=== PATIENT | female | born 1950 | race Caucasian/White ===

== ENCOUNTER 2018-09-15 15:10 | Emergency (ER) | payer OTHER, MEDICARE ==
[2018-09-15] MEDS ORDERED: Sodium Chloride 0.9% 10 ML Syringe FLUSH PRN (15:17)
[2018-09-15] MEDS ORDERED: Sodium Chloride 0.9% 1,000 ML IV ONE (15:17)
[2018-09-15] MEDS ORDERED: Diltiazem 50 MG/10 ML SDV IVPUSH ONE (15:17)
[2018-09-15] MEDS: Diltiazem 50 MG/10 ML SDV IVPUSH ONE ×2 (15:35→18:02)
[2018-09-15] MEDS: Sodium Chloride 0.9% 1,000 ML IV ONE (15:35)
--- NOTE | 2018-09-15 15:46 | EDM.PDOC ---
ED HPI GENERAL MEDICAL PROBLEM - General Chief Complaint: Cardiovascular Problem Stated Complaint: SHORTNESS OF BREATH Time Seen by Provider: 09/15/18 15:14 Source of Information: Reports: Patient History Limitations: Reports: No Limitations - History of Present Illness INITIAL COMMENTS - FREE TEXT/NARRATIVE: Patient arrived at the clinic earlier today with complaints of SOB. Reports shortness of breath and chest pressure started 3 days ago. Upon EKG, she was found to be in a-fib with RVR. She was then sent to the ER from the [facility]. Initial blood pressure 105 systolic. She denies chest pain, headache, sweating, head, neck, arm, or jaw pain. Denies any urinary or bowel symptoms. She does deny any prior history of atrial fibrillation. No prior OR or CVA. History of smoking. No blood in urine or stool. No nausea or vomiting. No change in vision or speech. Onset: Today, Sudden Duration: Constant Associated Symptoms: Reports: Shortness of Breath - Related Data Allergies Allergy/AdvReac Type Severity Reaction Status Date / Time No Known Drug Allergies Allergy Other Verified 09/15/18 15:55 cats Allergy Unknown Sneezing Uncoded 03/02/18 12:34 Home Meds: Home Meds Albuterol Sulfate [Proair Hfa] 2 puff IH Q4H PRN 02/18/18 [History] Tiotropium [Spiriva Handihaler] 2 puff IH DAILY 02/18/18 [History] Aspirin 325 mg PO DAILY 03/02/18 [History] Calcium Carbonate 600 mg PO BIDMEALS 03/02/18 [History] Cholecalciferol (Vitamin D3) [Vitamin D3] 1,000 unit PO DAILY 03/02/18 [History] Fluticasone/Vilanterol [Breo Ellipta 200-25 MCG Inhalation Kit] 1 puff INH DAILY 03/02/18 [History] Multivitamin [Multivitamins] 1 each PO DAILY 03/02/18 [History] [place]-3 Fatty Acids [Maxepa] 500 mg PO DAILY 09/15/18 [History] Rosuvastatin [Crestor] 5 mg PO DAILY 09/15/18 [History] Varenicline Tartrate [Chantix] 0.5 mg PO BID 09/15/18 [History] Past Medical History - Past Health History Medical/Surgical History: Denies Medical/Surgical History Cardiovascular History: Reports: High Cholesterol Respiratory History: Reports: COPD Musculoskeletal History: Reports: Other (See Below) Other Musculoskeletal History: right hip septic arthritis Psychiatric History: Reports: Other (See Below) Other Psychiatric History: substance abuse - Past Surgical History HEENT Surgical History: Reports: Adenoidectomy, Tonsillectomy GI Surgical History: Reports: Other (See Below) Other GI Surgeries/Procedures: ventral hernia Female Surgical History: Reports: Section, Hysterectomy Musculoskeletal Surgical History: Reports: Other (See Below) Other Musculoskeletal Surgeries/Procedures:: hip surgery 2018 ED ROS GENERAL - Review of Systems Review Of Systems: See Below Constitutional: Reports: No Symptoms HEENT: Reports: No Symptoms Respiratory: Reports: Shortness of Breath Cardiovascular: Reports: No Symptoms Endocrine: Reports: No Symptoms GI/Abdominal: Reports: No Symptoms : Reports: No Symptoms Musculoskeletal: Reports: No Symptoms Skin: Reports: No Symptoms Neurological: Reports: No Symptoms Psychiatric: Reports: No Symptoms Hematologic/Lymphatic: Reports: No Symptoms Immunologic: Reports: No Symptoms ED EXAM, GENERAL - Physical Exam Exam: See Below Exam Limited By: No Limitations General Appearance: Alert, WD/WN, No Apparent Distress Eye Exam: Bilateral Eye: EOMI, Normal Inspection, PERRL Ears: Normal TMs Nose: Normal Inspection, Normal Mucosa, No Blood Throat/Mouth: Normal Inspection, Normal Lips, Normal Teeth, Normal Gums, Normal Oropharynx, Normal Voice, No Airway Compromise Head: Atraumatic, Normocephalic Neck: Normal Inspection, Supple, Non-Tender, Full Range of Motion Respiratory/Chest: No Respiratory Distress, Lungs Clear, No Accessory Muscle Use , Chest Non-Tender, Wheezing Cardiovascular: Normal Peripheral Pulses, No Edema, No Gallop, No JVD, No Murmur , No Rub, Irregularly Irregular GI/Abdominal: Normal Bowel Sounds, Soft, Non-Tender, No Organomegaly, No Distention, No Abnormal Bruit, No Mass Back Exam: Normal Inspection, Full Range of Motion, NT Extremities: Normal Inspection, Normal Range of Motion, Non-Tender, Normal Capillary Refill, No Pedal Edema Neurological: Alert, Oriented, CN II-XII Intact, Normal Cognition, Normal Gait, Normal Reflexes, No Motor/Sensory Deficits Psychiatric: Normal Affect, Normal Mood Skin Exam: Warm, Dry, Intact, Normal Color, No Rash Lymphatic: No Adenopathy Course - Vital Signs Last Recorded V/S: Last Vital Signs Temp 37.6 C 09/15/18 17:13 Pulse 113 H 09/15/18 17:13 Resp 15 09/15/18 17:13 BP 111/54 L 09/15/18 17:13 Pulse Ox 95 09/15/18 17:13 - Orders/Labs/Meds Labs: Laboratory Tests 09/15/18 09/15/18 09/15/18 Range/Units 15:30 15:30 15:30 WBC 10.0 (4.0-10.0) x10^3/uL RBC 4.86 (4.00-5.50) x10^6/uL Hgb 14.5 (12.0-16.0) g/dL Hct 45.4 (33.0-47.0) % MCV 93.4 H (78.0-93.0) fL MCH 29.8 (26.0-32.0) pg MCHC 31.9 L (32.0-36.0) g/dL RDW Coeff of Seferino 14.3 (10.0-15.0) % Plt Count 253 (130-400) x10^3/uL Neut % (Auto) 74.4 (50.0-80.0) % Lymph % (Auto) 15.8 L (25.0-50.0) % [place] % (Auto) 7.5 (2.0-11.0) % Eos % (Auto) 1.8 (0.0-4.0) % Baso % (Auto) 0.5 (0.2-1.2) % Sodium 143 D (136-145) mmol/L Potassium 4.6 (3.5-5.1) mmol/L Chloride 104 (98-107) mmol/L Carbon Dioxide 29 (21-32) mmol/L Anion Gap 14.6 (10-20) mmol/L BUN 11 (7-18) mg/dL Creatinine 0.7 (0.55-1.02) mg/dL Est Cr Clr Drug Dosing TNP Estimated GFR (MDRD) > 60 Glucose 97 (74-106) mg/dL Lactic Acid 1.6 (0.4-2.0) mmol/L Calcium 9.0 (8.5-10.1) mg/dL Corrected Calcium 9.96 (8.5-10.1) mg/dL Magnesium 1.7 L (1.8-2.4) mg/dL Total Bilirubin 0.5 (0.2-1.0) mg/dL AST 15 (15-37) U/L ALT 16 (14-59) U/L Alkaline Phosphatase 99 (46-116) U/L Creatine Kinase 45 (26-192) U/L Troponin I < 0.017 (<=0.056) ng/mL C-Reactive Protein 5.1 H (<=0.9) mg/dL NT-Pro-B Natriuret Pep 2566 H (<=125) pg/mL Total Protein 6.9 (6.4-8.2) g/dL Albumin 2.8 L (3.4-5.0) g/dL Globulin 4.1 Albumin/Globulin Ratio 0.68 TSH, Ultra Sensitive 1.737 (0.358-3.74) uIU/mL Meds: Medications Discontinued Medications Generic Name Dose Route Start Last Admin Trade Name Freq PRN Reason Stop Dose Admin Albuterol/Ipratropium 3 ml 09/15/18 16:05 09/15/18 16:11 Duoneb 3.0-0.5 Mg/3 Ml NEB 09/15/18 16:06 3 ml ONETIME ONE Administration Aspirin 324 mg 09/15/18 16:39 09/15/18 16:41 Aspirin PO 09/15/18 16:40 324 mg ONETIME ONE Administration Ceftriaxone Sodium 1 gm 09/15/18 15:56 09/15/18 16:00 Rocephin IVPUSH 09/15/18 15:57 1 gm STAT ONE Administration Diltiazem HCl 20 mg 09/15/18 15:17 Cardizem IVPUSH 09/15/18 15:18 ONETIME ONE Diltiazem HCl 10 mg 09/15/18 15:24 09/15/18 15:35 Cardizem IVPUSH 09/15/18 15:25 10 mg ONETIME ONE Administration Diltiazem HCl 10 mg 09/15/18 15:51 09/15/18 18:02 Cardizem IVPUSH 09/15/18 15:52 Not Given ONETIME ONE Enoxaparin Sodium 80 mg 09/15/18 16:54 09/15/18 17:06 Lovenox SUBCUT 09/15/18 16:55 80 mg ONETIME ONE Administration Sodium Chloride 1,000 mls @ 500 mls/hr 09/15/18 15:17 Normal Saline IV 09/15/18 17:16 ONETIME ONE Sodium Chloride 1,000 mls @ 999 mls/hr 09/15/18 15:25 09/15/18 15:35 Normal Saline IV 09/15/18 16:25 999 mls/hr ONETIME ONE Administration Amiodarone HCl/Dextrose 360 mg in 200 mls @ 33.333 mls/hr 09/15/18 17:00 17:14 Nexterone In Dextrose 360 Mg/200 Ml IV 33.333 mls/hr ASDIRECTED BHAVIN Administration Protocol Amiodarone HCl/Dextrose 360 mg 200 mls @ 500 mls/hr 09/15/18 16:54 09/15/18 17:04 / Premix IV 09/15/18 17:17 500 mls/hr .BOLUS ONE Administration Methylprednisolone Sodium Succinate 40 mg 09/15/18 16:06 09/15/18 16:10 Solu-Medrol IVPUSH 09/15/18 16:07 40 mg ONETIME ONE Administration Sodium Chloride 10 ml 09/15/18 15:17 Saline Flush FLUSH ASDIRECTED PRN Keep Vein Open - Radiology Interpretation Free Text/Narrative:: Chest x-ray shows COPD changes, but no pneumonia, edema, infiltrates, or atelectasis. Images pushed to [facility] through PACS - Re-Assessments/Exams Free Text/Narrative Re-Assessment/Exam: 09/15/18 16:00 Initial Cardizem 10 mg bolus given due to lower systolic pressures rather than full 20-25 mg. After this bolus, SBP did drop to 86 systolic. 0.9% Normal Saline bolus is infusing concurrently. Pressures did recover to 100-130 systolic but normalized in the 100-110 range systolic. 09/15/18 16:30 Additional Cardizem boluses held due to low systolic pressures. Will likely start Amiodarone, but will confer with accepting hospitalist at [facility]. Departure - Departure Time of Disposition: 18:10 Disposition: DC/Tfer to Acute Hospital 02 Reason for Transfer *Q: Other Condition: Fair Clinical Impression: Atrial fibrillation with RVR Referrals: [place],Kathya, MD [Primary Care Provider] - Forms: ED Department Discharge, Interfacility Transfer [facility] ED Communication - ED Communication Date/Time Date: 09/15/18 Time Called: 16:55 - Discussed Case With (1) Discussed Case With (1): Admitting Provider (Dr. Adames called and given report. Orders to start Amiodarone bolus and gtt, weight based lovenox one time dose)
[2018-09-15] MEDS: cefTRIAXone 1 GM Vial IVPUSH ONE (16:00)
[2018-09-15 16:05] LABS: CHLORIDE,CL 104 mmol/L (98-107); SODIUM,NA 143 mmol/L (136-145)
[2018-09-15 16:06] LABS: ANION GAP 14.6 mmol/L (10-20)
[2018-09-15] MEDS: methylPREDNISolone Sodium Succinate 40 MG/1 ML SDV IVPUSH ONE (16:10)
[2018-09-15] MEDS: Albuterol/Ipratropium 3.0-0.5 MG/3 ML Neb Soln NEB ONE (16:11)
--- NOTE | 2018-09-15 16:23 | CR ---
[id number] RAD/RAD Chest PA And Lateral EXAM: RAD Chest PA And Lateral INDICATION: SHORT OF BREATH. COMPARISON: Chest CT from August 05, 2018. DISCUSSION: Cardiomediastinal silhouette is stable in size and contour. Changes of COPD in the chest. No infiltrate, effusion, pneumothorax, or edema. Moderate T11 compression deformity, as seen on CT from August 05, 2018. IMPRESSION: No acute findings in the chest. Avery Roy MD 09/15/18 [id number] Thank you for allowing us to participate in the care of your patient.
[2018-09-15] MEDS: Aspirin 81 MG Tab.Chew PO ONE (16:41)
[2018-09-15] MEDS: Amiodarone In Dextrose,Iso-Osm 360 MG in Premix Bag 1 BAG IV ONE ×2 (17:04)
[2018-09-15] MEDS: Enoxaparin 80 MG/0.8 ML Syringe SUBCUT ONE (17:06)
[2018-09-15 17:13] VITALS: BP 111/54
== END 2018-09-15 18:10 | disposition short-term general hospital (02) ==
LOC: VM.ED 15:10
DX: I48.91 Unspecified atrial fibrillation (principal); E78.00 Pure hypercholesterolemia, unspecified; J44.0 Chronic obstructive pulmonary disease with (acute) lower respiratory infection; Z79.899 Other long term (current) drug therapy; Z79.82 Long term (current) use of aspirin; Z91.09 Other allergy status, other than to drugs and biological substances
CPT/HCPCS: 36415; 71046; 80053; 82550; 83605; 83735; 83880; 84443; 84484; 85025; 86140; 87040; 87804; 87804-59; 94640; 96361; 96365; 96372; 96375; 99285-25; A9270-GY; J0282; J0696; J1650; J2920; J3490; J7030; J7620-GY

== ENCOUNTER 2019-08-11 15:15 | Inpatient (IN) | payer MEDICARE, OTHER ==
--- NOTE | 2019-08-11 15:29 | EDM.PDOC ---
ED HPI GENERAL MEDICAL PROBLEM - General Chief Complaint: General Stated Complaint: low bp Time Seen by Provider: 08/11/19 15:15 Source of Information: Reports: Patient, Family History Limitations: Reports: No Limitations - History of Present Illness INITIAL COMMENTS - FREE TEXT/NARRATIVE: Patient states last night states she did not feel well and her blood pressure was low 90s over 70s lasted for couple hours went to bed got up this morning felt fine but her blood pressure was still low 91/74 then 81/61 at 230 patient states that she felt fine overall though no other complaints. 2 days ago she had a cardiac stent placed in [place] secondary she was having chest pain she was kept overnight and discharged home with no complications Approximately 1 month ago she had iatrogenic pneumothorax secondary to a biopsy of a lymph node where she had a chest tube that was removed with no complications. Overall she states she has been doing very well but no other issues Currently takes Xarelto and Plavix and is currently being treated for A. 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 (see below) (She states she had a few bottles of water today and some breakfast and lunch) - Related Data Allergies Allergy/AdvReac Type Severity Reaction Status Date / Time No Known Drug Allergies Allergy Other Verified 08/11/19 15:38 cats Allergy Unknown Sneezing Uncoded 03/02/18 12:34 Home Meds: Home Meds Albuterol Sulfate [Proair Hfa] 2 puff IH Q4H PRN 02/18/18 [History] Tiotropium [Spiriva Handihaler] 2 puff IH DAILY 02/18/18 [History] Calcium Carbonate 600 mg PO BIDMEALS 03/02/18 [History] Cholecalciferol (Vitamin D3) [Vitamin D3] 3,000 unit PO DAILY 03/02/18 [History] Fluticasone/Vilanterol [Breo Ellipta 200-25 MCG Inhalation Kit] 1 puff INH DAILY 03/02/18 [History] Multivitamin [Multivitamins] 1 each PO DAILY 03/02/18 [History] [place]-3 Fatty Acids [Maxepa] 500 mg PO DAILY 09/15/18 [History] Rosuvastatin [Crestor] 5 mg PO DAILY 09/15/18 [History] Varenicline Tartrate [Chantix] 0.5 mg PO BID 09/15/18 [History] Aspirin 81 mg PO DAILY 08/11/19 [History] Clopidogrel [Plavix] 75 mg PO DAILY 08/11/19 [History] Metoprolol Succinate [Toprol XL] 25 mg PO DAILY 08/11/19 [History] Rivaroxaban [Xarelto] 20 mg PO DAILY 08/11/19 [History] predniSONE [Prednisone] 40 mg PO DAILY 08/11/19 [History] Past Medical History - Past Health History Medical/Surgical History: Denies Medical/Surgical History Cardiovascular History: Reports: High Cholesterol Respiratory History: Reports: COPD Musculoskeletal History: Reports: Other (See Below) Other Musculoskeletal History: right hip septic arthritis Psychiatric History: Reports: Other (See Below) Other Psychiatric History: substance abuse - Past Surgical History HEENT Surgical History: Reports: Adenoidectomy, Tonsillectomy GI Surgical History: Reports: Other (See Below) Other GI Surgeries/Procedures: ventral hernia Female Surgical History: Reports: Section, Hysterectomy Musculoskeletal Surgical History: Reports: Other (See Below) Other Musculoskeletal Surgeries/Procedures:: hip surgery 2018 ED ROS GENERAL - Review of Systems Review Of Systems: See Below Constitutional: Reports: No Symptoms. Denies: Fever, Chills, Malaise, Weakness , Fatigue, Night Sweats, Diaphoresis, Decreased Appetite HEENT: Reports: No Symptoms Respiratory: Reports: No Symptoms. Denies: Shortness of Breath, Wheezing, Pleuritic Chest Pain, Cough, Sputum Cardiovascular: Reports: No Symptoms, Blood Pressure Problem. Denies: Chest Pain, Claudication, Dyspnea on Exertion, Edema, Lightheadedness, Orthopnea, Palpitations, PND, Syncope Endocrine: Reports: No Symptoms GI/Abdominal: Reports: No Symptoms. Denies: Bloody Stool, Nausea, Vomiting : Reports: No Symptoms Musculoskeletal: Reports: No Symptoms Skin: Reports: No Symptoms Neurological: Reports: No Symptoms. Denies: Confusion, Dizziness, Headache, Numbness, Syncope, Tingling, Trouble Speaking, Difficulty Walking, Weakness, Change in Speech, Gait Disturbance Psychiatric: Reports: No Symptoms Hematologic/Lymphatic: Reports: No Symptoms Immunologic: Reports: No Symptoms ED EXAM, GENERAL - Physical Exam Exam: See Below Exam Limited By: No Limitations General Appearance: Alert, WD/WN, No Apparent Distress, Other (PT with a normal gait smiling very friendly cranial nerves II through XII are intact states she is still smoking) Eye Exam: Bilateral Eye: EOMI, PERRL Ears: Normal External Exam Throat/Mouth: Normal Inspection, Normal Lips, Normal Teeth, Normal Gums, Normal Oropharynx, Normal Voice, No Airway Compromise Head: Atraumatic, Normocephalic Neck: Normal Inspection, Supple, Non-Tender, Full Range of Motion Respiratory/Chest: No Respiratory Distress, Lungs Clear, Normal Breath Sounds, No Accessory Muscle Use, Chest Non-Tender Cardiovascular: Normal Peripheral Pulses, No Edema, No Gallop, No JVD, No Murmur , No Rub, Irregularly Irregular GI/Abdominal: Normal Bowel Sounds, Soft, Non-Tender, No Organomegaly, No Distention, Other (No HSM) Neurological: Alert, Oriented, CN II-XII Intact, Normal Cognition, Normal Gait, Normal Reflexes, No Motor/Sensory Deficits, Other (Equal advertising designer 5/5 strength bilateral upper and lower extremities) Psychiatric: Normal Affect, Normal Mood Skin Exam: Warm, Dry, Intact, Normal Color, No Rash Lymphatic: No Adenopathy Course - Vital Signs Text/Narrative:: CBC BMP EKG chest x-ray Spoke with Dr. Barnes cardiology in [place] agrees that potentially may be related to rate control may increase metoprolol by 25 mg observe patient for hypotension states she is willing to consult with hospitalist is willing to accept [place] states they are anywhere from 8 hours to 24 hours out on the bed patient is willing to stay here at [facility] Lizeth Salinas is willing to accept admission wants to check a troponin for trending secondary to having a stent placed 2 days ago Last Recorded V/S: Last Vital Signs Temp 36.7 C 08/11/19 15:17 Pulse 106 H 08/11/19 16:30 Resp 14 08/11/19 16:30 BP 103/61 08/11/19 16:30 Pulse Ox 96 08/11/19 16:30 - Orders/Labs/Meds Labs: Laboratory Tests 08/11/19 08/11/19 Range/Units 15:34 15:34 WBC 12.6 H (4.0-10.0) x10^3/uL RBC 5.47 (4.00-5.50) x10^6/uL Hgb 16.3 H D (12.0-16.0) g/dL Hct 48.7 H (33.0-47.0) % MCV 89.0 D (78.0-93.0) fL MCH 29.8 (26.0-32.0) pg MCHC 33.5 (32.0-36.0) g/dL RDW Coeff of Seferino 14.6 (10.0-15.0) % Plt Count 267 (130-400) x10^3/uL Add Manual Diff Yes Neutrophils % (Manual) 67 (50-80) % Band Neutrophils % 4 (0-6) % Lymphocytes % (Manual) 17 L (25-50) % Monocytes % (Manual) 9 (2-11) % Eosinophils % (Manual) 1 (0-4) % Metamyelocytes % 2 H (0) % Platelet Estimate Adequate Anisocytosis 1+ slight H Sodium 140 (136-145) mmol/L Potassium 4.4 (3.5-5.1) mmol/L Chloride 102 (98-107) mmol/L Carbon Dioxide 31 (21-32) mmol/L Anion Gap 11.4 (10-20) mmol/L BUN 12 (7-18) mg/dL Creatinine 0.8 (0.55-1.02) mg/dL Est Cr Clr Drug Dosing TNP Estimated GFR (MDRD) > 60 Glucose 92 (74-106) mg/dL Calcium 8.2 L (8.5-10.1) mg/dL Departure - Departure Time of Disposition: 17:20 Disposition: Refer to Observation Condition: Good Clinical Impression: Hypotension - Discharge Information Forms: ED Department Discharge Sepsis Event Note - Focused Exam Vital Signs: Vital Signs Temp Pulse Resp BP Pulse Ox 08/11/19 16:30 106 H 14 103/61 96 08/11/19 15:17 36.7 C 130 H 18 110/56 L 96 Date Exam was Performed: 08/11/19 Time Exam was Performed: 17:18 - Problem List & Annotations (1) Hypotension SNOMED Code(s): 80179810 Code(s): I95.9 - HYPOTENSION, UNSPECIFIED Status: Acute Current Visit: Yes
--- NOTE | 2019-08-11 15:54 | CR ---
[id number] RAD/RAD Chest PA or AP 1V EXAM: FRONTAL CHEST INDICATION: PAST PNEUMO HISTORY. COMPARISON: Chest CT June 24, 2019. DISCUSSION: Hyperinflation compatible with underlying chronic obstructive pulmonary disease. Mild scattered parenchymal scarring. Bilateral poorly defined upper lobe nodules measuring about 21 mm on the right and 15 mm on the left are likely similar relative to the prior CT, but repeat CT evaluation would be suggested at some point for further evaluation. No focal consolidation is identified. Normal heart size. IMPRESSION: 1. Poorly defined bilateral pulmonary nodules are likely similar to a June 24, 2019 CT examination. Willy Jerry MD 08/11/19 1550 Thank you for allowing us to participate in the care of your patient.
[2019-08-11 16:03] LABS: CHLORIDE,CL 102 mmol/L (98-107); SODIUM,NA 140 mmol/L (136-145)
[2019-08-11 16:05] LABS: ANION GAP 11.4 mmol/L (10-20)
[2019-08-11] MEDS ORDERED: Sodium Chloride 0.9% 10 ML Syringe FLUSH PRN (19:10)
[2019-08-11] MEDS ORDERED: Albuterol HFA 18 Gm Inhaler INH PRN (19:14)
[2019-08-11] MEDS ORDERED: Sodium Chloride 0.9% 500 ML IV ONE (19:25)
[2019-08-11] MEDS ORDERED: Rivaroxaban 10 MG Tab PO SCH (19:30)
[2019-08-11] MEDS ORDERED: predniSONE 10 MG Tab PO SCH (19:30)
[2019-08-11] MEDS: Clopidogrel 75 MG Tab PO SCH (20:20)
[2019-08-11] MEDS: Aspirin 81 MG Tab.Chew PO SCH (20:21)
[2019-08-11] MEDS: Metoprolol Succinate 25 MG Tab.ER PO SCH (20:21)
[2019-08-11] MEDS: Amoxicillin/Clavulanate K 875-125 MG Tab PO SCH (20:26)
[2019-08-11] MEDS ORDERED: Digoxin 500 MCG/2 ML Amp IVPUSH SCH ×2 (21:15→23:30)
[2019-08-11] MEDS: Fluticasone-Salmeterol 113-14 MCG Powder Inhalant INH SCH (21:32)
[2019-08-11] MEDS: Ipratropium 0.02% 0.5 MG/2.5 ML Neb Soln INH SCH (21:35)
[2019-08-11] MEDS: Rivaroxaban 10 MG Tab PO SCH (21:55)
[2019-08-11] MEDS ORDERED: predniSONE 10 MG Tab PO ONE (22:00)
[2019-08-11] MEDS ORDERED: Metoprolol Tartrate 5 MG/5 ML SDV IVPUSH STA (22:05)
[2019-08-11] MEDS: Digoxin 500 MCG/2 ML Amp IVPUSH SCH (23:50)
--- NOTE | 2019-08-12 02:03 | HP ---
CHIEF COMPLAINT: Low blood pressure. HISTORY OF PRESENT ILLNESS: This is a 69-year-old who was actually just discharged from the hospital yesterday after a stent placement on the to the distal circumflex after a positive stress test. She was having EKG changes and ST elevation. 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 She actually had no troponins done while she was in the hospital. Did have one done on the that was normal. She told me that she had a stress test with me last year. However, she was not able to complete it due to her exercise tolerance. She also has COPD and still smokes 1 pack per day. Prior to this stent, she was having some chest discomfort. She is not having any chest discomfort now. She is not feeling short of breath. She states her pulse was not fast at home, but she was even last night getting low readings like 90/70, even an 81/61, so she came to the ER for further evaluation. While in the ER, it was discovered that she was in AFib with rate of 138. She tells me she has had AFib before. Her blood pressure was up to 110/56. Her white count initially was mildly elevated at 12.6. Urine was normal. Chest x-ray did not show any new pneumonia, and she has actually been on Augmentin 875 twice daily since 07/28. Per her lung doctor, this was due to COPD with acute lower respiratory infection. She actually had some nodules and had a pneumothorax. Those were being biopsied back around 07/26. She is also on prednisone 40 mg daily with a stop date on that actually today. She has not taken her pills yet today. She is supposed to be on Toprol 25 mg daily, Plavix, and aspirin. After request for admission came, I requested a troponin. It was elevated at 0.077. The patient was unable to be transferred to [facility] as there were no rooms available. The patient actually prefers to go home. ALLERGIES: Cat dander. MEDICATION LIST: Reviewed and listed as the Breo inhaler daily, Plavix 75 mg daily, aspirin 81 mg daily, Augmentin 875 twice daily until 08/18, prednisone 40 mg daily, last dose today, Crestor 5 mg daily, Spiriva daily. She is not taking Chantix. Albuterol as needed, Toprol 25 mg daily, Xarelto 20 mg at supper. She is not using her fish oil or multivitamin or calcium. Also, then, vitamin D is 2000 units daily. PAST MEDICAL HISTORY: Includes COPD with pulmonary function testing just done last month. FEV 1.97 or 42%. Coronary artery disease with recent stent to the distal circumflex, hyperlipidemia, smoking, obesity, obstructive sleep apnea, paroxysmal AFib, previous septic arthritis of the hip. PAST SURGICAL HISTORY: The patient has had a ventral hernia surgery, tonsil and adenoidectomy, hysterectomy, incision and drainage of the right hip, . FAMILY HISTORY: Both parents are . Her mother had heart disease and a pacemaker. SOCIAL HISTORY: She is . She has 3 children. She is a current smoker, 1 pack per day. REVIEW OF SYSTEMS: General: She has not noticed any fever. No chills. No weight changes. HEENT: No sore throat. Cardiac: No chest pain. She has not noticed any fast heart rates or palpitations. Respiratory: She has not had any increased cough or shortness of breath. Neurologic: She did feel dizzy yesterday. She denies any dizziness currently. She has not been confused. : No burning with urination. GI: No abdominal pain or diarrhea. Otherwise, all systems reviewed and found to be negative unless otherwise stated. PHYSICAL EXAMINATION: Vital signs: When I saw her at [facility], her heart rate was 131, her temperature 97.8, her weight 63.5 kg, blood pressure 104/73, respiratory rate 16, and O2 of 93% on room air. General: She is in no acute distress. Heart: Irregularly irregular without murmur appreciated. Lungs: Sounds are decreased, but clear to auscultation bilaterally without crackles or wheezes. Abdomen: Nondistended, nontender. Extremities: Warm and dry. There is no edema. Mental status: She is alert. She is orientated x3. She is answering all questions appropriately. LABORATORY WORK: Did show elevated troponin at 0.077. Sodium 140, potassium 4.4, chloride 102, bicarb 31, BUN 12, creatinine 0.8, calcium 8.2. White count 12.6, no left shift, hemoglobin 16.3, platelets 267. UA is normal. ASSESSMENT: 1. Hwj-SG-wbnwqrarp myocardial infarction, possibly due to the atrial fibrillation with rapid ventricular response, a recent stent placement. The patient is asymptomatic. Not having chest pain. We will continue her medical management and home medications. I am not going to start a heparin drip. She is already on Xarelto. We will repeat a troponin now. It has been 3 hours since the first blood was collected because we actually ran it on her first collection blood. 2. Atrial fibrillation with rapid ventricular response. She has not taken her medications today. She was worried about low blood pressure. We will give her a dose of Toprol. I will also give her a slight fluid bolus. We will institute her on digoxin if needed. We will continue to monitor with telemetry. 3. Hypotension. Blood pressures here not as low at home. Possibly, her readings were not that accurate given the atrial fibrillation, but she was feeling dizzy. So, we will monitor the blood pressures closely, but Toprol will need to be continued currently due to the atrial fibrillation with rapid ventricular response. 4. Advanced chronic obstructive pulmonary disease and active smoking. She denies a nicotine patch. She is not having any active exacerbations. She is getting her last dose of prednisone tonight and she will continue on her Augmentin course that was laid out by Pulmonary. PLAN: The patient is admitted now to acute cares. Initially, was observation. We will see how she does overnight with heart rates. With her fluids and metoprolol, we will give her IV metoprolol and IV digoxin if things do not improve down to around 100 or better. She is agreeable to this plan. She is a code level 1. She is very hopeful to go home in the morning. That will depend on how she responds to treatment. If her condition worsens, we will transfer her to [facility]. PAULAA: 08/11/2019 19:56:50 MODL: 08/12/2019 01:56:08 /[id number] ELYSSA
[2019-08-12] MEDS: Digoxin 500 MCG/2 ML Amp IVPUSH SCH (05:25)
[2019-08-12] MEDS: Ipratropium 0.02% 0.5 MG/2.5 ML Neb Soln INH SCH ×2 (06:15→11:06)
[2019-08-12] MEDS: Fluticasone-Salmeterol 113-14 MCG Powder Inhalant INH SCH (06:16)
[2019-08-12 07:25] LABS: CHLORIDE,CL 105 mmol/L (98-107); SODIUM,NA 138 mmol/L (136-145)
[2019-08-12 07:27] LABS: ANION GAP 10.9 mmol/L (10-20)
[2019-08-12] MEDS: Aspirin 81 MG Tab.Chew PO SCH (07:50)
[2019-08-12] MEDS: Amoxicillin/Clavulanate K 875-125 MG Tab PO SCH (07:51)
[2019-08-12] MEDS: Metoprolol Succinate 25 MG Tab.ER PO SCH (07:51)
[2019-08-12] MEDS: Rivaroxaban 10 MG Tab PO SCH (07:51)
[2019-08-12] MEDS: Clopidogrel 75 MG Tab PO SCH (07:51)
[2019-08-12] MEDS ORDERED: Cholecalciferol (Vitamin D3) 25 MCG Tab PO SCH (08:00)
[2019-08-12] MEDS ORDERED: atorvaSTATin 10 MG Tab PO SCH (08:00)
[2019-08-12] MEDS ORDERED: Albuterol 0.083% 2.5 MG/3 ML Neb Soln NEB PRN (08:39)
--- NOTE | 2019-08-12 09:22 | PCM.SN ---
- Free Text/Narrative Note: Patient admitted last evening for a-fib with RVR. Rates improved after IV digoxin. She is feeling well this morning and would like to be discharged home if possible. Will monitor her throughout the day today and consider discharge home tomorrow if she continues to do well.
--- NOTE | 2019-08-12 13:51 | PCM.DCSUM1 ---
Discharge Summary - Hospital Course Brief History: Mrs. Ocampo is a 69 yo female who was admitted for monitoring after presenting to the ER for evaluation of low blood pressures. - Discharge Data Discharge Date: 08/12/19 Discharge Disposition: Home, Self-Care 01 Condition: Good - Referral to Home Health Primary Care Physician: Kathya Enrique MD - Discharge Diagnosis/Problem(s) (1) Atrial fibrillation with RVR SNOMED Code(s): 301185441526478 ICD Code: I48.91 - UNSPECIFIED ATRIAL FIBRILLATION Status: Acute Current Visit: No (2) Elevated troponin SNOMED Code(s): 766530885, 840099620, 477464878 ICD Code: R79.89 - OTHER SPECIFIED ABNORMAL FINDINGS OF BLOOD CHEMISTRY Status: Acute Current Visit: Yes (3) COPD (chronic obstructive pulmonary disease) SNOMED Code(s): 41356788 ICD Code: J44.9 - CHRONIC OBSTRUCTIVE PULMONARY DISEASE, UNSPECIFIED Status : Chronic Current Visit: Yes Qualifiers: COPD type: chronic bronchitis (4) Coronary artery disease SNOMED Code(s): 90019677 ICD Code: I25.10 - ATHSCL HEART DISEASE OF [place] CORONARY ARTERY W/O ANG PCTRS Status: Chronic Current Visit: Yes Qualifiers: Coronary Disease-Associated Artery/Lesion type: [place] artery [place] vs. transplanted heart: [place] heart Associated angina: without angina Qualified Code(s): I25.10 - Atherosclerotic heart disease of [place] coronary artery without angina pectoris (5) Lung nodule SNOMED Code(s): 492191015 ICD Code: R91.1 - SOLITARY PULMONARY NODULE Status: Chronic Current Visit : Yes (6) ANISH (obstructive sleep apnea) SNOMED Code(s): 34098607 ICD Code: G47.33 - OBSTRUCTIVE SLEEP APNEA (ADULT) (PEDIATRIC) Status: Chronic Current Visit: Yes (7) Hyperlipidemia SNOMED Code(s): 54989685 ICD Code: E78.5 - HYPERLIPIDEMIA, UNSPECIFIED Status: Chronic Current Visit: Yes Qualifiers: Hyperlipidemia type: unspecified Qualified Code(s): E78.5 - Hyperlipidemia , unspecified - Patient Summary/Data Operative Procedure(s) Performed: none Complications: none Consults: none Labs Pending at D/C: none Recommended Follow-up Testing/Procedures: none Planned Operative Procedure(s) after DC: none Hospital Course: The patient was found to be in a-fib with RVR with heart rates into the 130's- 140's upon arrival to the ER. Cardiology was consulted and transfer back to [place] was discussed but there were no beds available at the time. Therefore, the patient was admitted at [facility] for further evaluation and cares. She was given IV metoprolol and then IV digoxin. This ended up converting her back into sinus rhythm. Heart rates and blood pressure have been stable since. She got her usual dose of metoprolol this morning and has had stable vital signs throughout the day. She has been asymptomatic for her entire hospitalization. Her troponin was elevated but this remained stable and is felt to be secondary to her recent catheterization and stenting. She will be discharged home on her usual medications and will follow-up on Thursday as scheduled. She is given strict return precautions for over the weekend. She is also advised to only check her blood pressure at home if she is having symptoms such as lightheadedness, chest pain, etc. - Patient Instructions Diet: Usual Diet as Tolerated Activity: As Tolerated - Discharge Plan *PRESCRIPTION DRUG MONITORING PROGRAM REVIEWED*: No *COPY OF PRESCRIPTION DRUG MONITORING REPORT IN PATIENT GAYLA: No Home Medications: Home Meds Albuterol Sulfate [Proair Hfa] 2 puff IH Q4H PRN 02/18/18 [History] Tiotropium [Spiriva Handihaler] 2 puff IH DAILY 02/18/18 [History] Cholecalciferol (Vitamin D3) [Vitamin D3] 3,000 unit PO DAILY 03/02/18 [History] Fluticasone/Vilanterol [Breo Ellipta 200-25 MCG Inhalation Kit] 1 puff INH DAILY 03/02/18 [History] Rosuvastatin [Crestor] 5 mg PO DAILY 09/15/18 [History] Aspirin 81 mg PO DAILY 08/11/19 [History] Clopidogrel [Plavix] 75 mg PO DAILY 08/11/19 [History] Metoprolol Succinate [Toprol XL] 25 mg PO DAILY 08/11/19 [History] Rivaroxaban [Xarelto] 20 mg PO DAILY 08/11/19 [History] Forms: ED Department Discharge Referrals: Kathya Enrique MD [Primary Care Provider] - - Discharge Summary/Plan Comment DC Time >30 min.: No - General Info Date of Service: 08/12/19 Subjective Update: Patient states she is feeling well and she would like to be discharged home. She has been up and around in her room without any lightheadedness. She has not had any chest pain, chest pressure, or shortness of breath. She has been eating well. Essentially, she feels like her usual self and denies any concerns/ symptoms. - Review of Systems General: Reports: No Symptoms HEENT: Reports: No Symptoms Pulmonary: Reports: No Symptoms Cardiovascular: Reports: No Symptoms Gastrointestinal: Reports: No Symptoms Genitourinary: Reports: No Symptoms Musculoskeletal: Reports: No Symptoms Skin: Reports: No Symptoms Neurological: Reports: No Symptoms - Patient Data Vitals - Most Recent: Last Vital Signs Temp 36.3 C 08/12/19 09:00 Pulse 78 08/12/19 09:00 Resp 14 08/12/19 09:00 BP 110/60 08/12/19 09:00 Pulse Ox 95 08/12/19 09:00 Weight - Most Recent: 63.503 kg I&O - Last 24 hours: Intake & Output 08/11/19 08/12/19 08/12/19 22:59 06:59 14:59 Intake Total 360 Balance 360 Lab Results - Last 24 hrs: Laboratory Results - last 24 hr 08/11/19 08/11/19 08/11/19 Range/Units 15:34 15:34 15:34 WBC 12.6 H (4.0-10.0) x10^3/uL RBC 5.47 (4.00-5.50) x10^6/uL Hgb 16.3 H D (12.0-16.0) g/dL Hct 48.7 H (33.0-47.0) % MCV 89.0 D (78.0-93.0) fL MCH 29.8 (26.0-32.0) pg MCHC 33.5 (32.0-36.0) g/dL RDW Coeff of Seferino 14.6 (10.0-15.0) % Plt Count 267 (130-400) x10^3/uL Add Manual Diff Yes Neutrophils % (Manual) 67 (50-80) % Band Neutrophils % 4 (0-6) % Lymphocytes % (Manual) 17 L (25-50) % Monocytes % (Manual) 9 (2-11) % Eosinophils % (Manual) 1 (0-4) % Metamyelocytes % 2 H (0) % Platelet Estimate Adequate Anisocytosis 1+ slight H Sodium 140 (136-145) mmol/L Potassium 4.4 (3.5-5.1) mmol/L Chloride 102 (98-107) mmol/L Carbon Dioxide 31 (21-32) mmol/L Anion Gap 11.4 (10-20) mmol/L BUN 12 (7-18) mg/dL Creatinine 0.8 (0.55-1.02) mg/dL Est Cr Clr Drug Dosing TNP Estimated GFR (MDRD) > 60 Glucose 92 (74-106) mg/dL Calcium 8.2 L (8.5-10.1) mg/dL Magnesium (1.8-2.4) mg/dL Troponin I 0.077 H* (<=0.056) ng/mL TSH, Ultra Sensitive (0.358-3.74) uIU/mL Urine Color (YELLOW) Urine Appearance (CLEAR) Urine pH (5.0-8.0) Ur Specific [place] Urine Protein (NEGATIVE) mg/dL Urine Glucose (UA) (NEGATIVE) mg/dL Urine Ketones (NEGATIVE) mg/dL Urine Occult Blood (NEGATIVE) Urine Nitrite (NEGATIVE) Urine Bilirubin (NEGATIVE) Urine Urobilinogen (0.2) EU/dL Ur Leukocyte Esterase (NEGATIVE) Urine RBC (NOT SEEN) /HPF Urine WBC (NOT SEEN) /HPF Ur Squamous Epith Cells (NEGATIVE) /HPF Urine Bacteria (NEGATIVE) /HPF Urine Mucus (NEGATIVE) /LPF 08/11/19 08/11/19 08/12/19 Range/Units 17:41 20:31 06:22 WBC 10.1 H (4.0-10.0) x10^3/uL RBC 5.19 (4.00-5.50) x10^6/uL Hgb 15.5 (12.0-16.0) g/dL Hct 46.8 (33.0-47.0) % MCV 90.2 (78.0-93.0) fL MCH 29.9 (26.0-32.0) pg MCHC 33.1 (32.0-36.0) g/dL RDW Coeff of Seferino 14.8 (10.0-15.0) % Plt Count 253 (130-400) x10^3/uL Add Manual Diff Yes Neutrophils % (Manual) 86 H (50-80) % Band Neutrophils % 4 (0-6) % Lymphocytes % (Manual) 7 L (25-50) % Monocytes % (Manual) 3 (2-11) % Eosinophils % (Manual) (0-4) % Metamyelocytes % (0) % Platelet Estimate Adequate Anisocytosis Sodium (136-145) mmol/L Potassium (3.5-5.1) mmol/L Chloride (98-107) mmol/L Carbon Dioxide (21-32) mmol/L Anion Gap (10-20) mmol/L BUN (7-18) mg/dL Creatinine (0.55-1.02) mg/dL Est Cr Clr Drug Dosing Estimated GFR (MDRD) Glucose (74-106) mg/dL Calcium (8.5-10.1) mg/dL Magnesium (1.8-2.4) mg/dL Troponin I 0.065 H* (<=0.056) ng/mL TSH, Ultra Sensitive (0.358-3.74) uIU/mL Urine Color Yellow (YELLOW) Urine Appearance Clear (CLEAR) Urine pH 7.0 (5.0-8.0) Ur Specific [place] 1.015 Urine Protein Negative (NEGATIVE) mg/dL Urine Glucose (UA) Negative (NEGATIVE) mg/dL Urine Ketones Negative (NEGATIVE) mg/dL Urine Occult Blood Negative (NEGATIVE) Urine Nitrite Negative (NEGATIVE) Urine Bilirubin Negative (NEGATIVE) Urine Urobilinogen 0.2 (0.2) EU/dL Ur Leukocyte Esterase Negative (NEGATIVE) Urine RBC 0-5 (NOT SEEN) /HPF Urine WBC Not seen (NOT SEEN) /HPF Ur Squamous Epith Cells Few H (NEGATIVE) /HPF Urine Bacteria Rare (NEGATIVE) /HPF Urine Mucus Not seen (NEGATIVE) /LPF 08/12/19 08/12/19 Range/Units 06:22 06:22 WBC (4.0-10.0) x10^3/uL RBC (4.00-5.50) x10^6/uL Hgb (12.0-16.0) g/dL Hct (33.0-47.0) % MCV (78.0-93.0) fL MCH (26.0-32.0) pg MCHC (32.0-36.0) g/dL RDW Coeff of Seferino (10.0-15.0) % Plt Count (130-400) x10^3/uL Add Manual Diff Neutrophils % (Manual) (50-80) % Band Neutrophils % (0-6) % Lymphocytes % (Manual) (25-50) % Monocytes % (Manual) (2-11) % Eosinophils % (Manual) (0-4) % Metamyelocytes % (0) % Platelet Estimate Anisocytosis Sodium 138 (136-145) mmol/L Potassium 4.9 (3.5-5.1) mmol/L Chloride 105 (98-107) mmol/L Carbon Dioxide 27 (21-32) mmol/L Anion Gap 10.9 (10-20) mmol/L BUN 13 (7-18) mg/dL Creatinine 0.7 (0.55-1.02) mg/dL Est Cr Clr Drug Dosing 67.34 Estimated GFR (MDRD) > 60 Glucose 136 H (74-106) mg/dL Calcium 7.7 L (8.5-10.1) mg/dL Magnesium 1.8 (1.8-2.4) mg/dL Troponin I (<=0.056) ng/mL TSH, Ultra Sensitive 1.062 (0.358-3.74) uIU/mL Urine Color (YELLOW) Urine Appearance (CLEAR) Urine pH (5.0-8.0) Ur Specific [place] Urine Protein (NEGATIVE) mg/dL Urine Glucose (UA) (NEGATIVE) mg/dL Urine Ketones (NEGATIVE) mg/dL Urine Occult Blood (NEGATIVE) Urine Nitrite (NEGATIVE) Urine Bilirubin (NEGATIVE) Urine Urobilinogen (0.2) EU/dL Ur Leukocyte Esterase (NEGATIVE) Urine RBC (NOT SEEN) /HPF Urine WBC (NOT SEEN) /HPF Ur Squamous Epith Cells (NEGATIVE) /HPF Urine Bacteria (NEGATIVE) /HPF Urine Mucus (NEGATIVE) /LPF Med Orders - Current: Current Medications Albuterol (Proventil Neb Soln) 2.5 mg NEB Q4HRRT PRN PRN Reason: Shortness of Breath Amoxicillin/Clavulanate Potassium (Augmentin 875 Mg/125 Mg) 1 tab PO Q12HR [facility] Stop: 08/18/19 20:01 Last Admin: 08/12/19 07:51 Dose: 1 tab Aspirin (Aspirin) 81 mg PO DAILY [facility] Last Admin: 08/12/19 07:50 Dose: 81 mg Atorvastatin Calcium (Lipitor) 20 mg PO DAILY [facility] Last Admin: 08/12/19 07:51 Dose: 20 mg Cholecalciferol (Vitamin D3) 75 mcg PO DAILY [facility] Last Admin: 08/12/19 07:51 Dose: 75 mcg Clopidogrel Bisulfate (Plavix) 75 mg PO DAILY [facility] Last Admin: 08/12/19 07:51 Dose: 75 mg Ipratropium Witter (Atrovent) 0.5 mg INH QIDRT [facility] Last Admin: 08/12/19 11:06 Dose: 0.5 mg Metoprolol Succinate (Toprol Xl) 25 mg PO DAILY [facility] Last Admin: 08/12/19 07:51 Dose: 25 mg Rivaroxaban (Xarelto) 20 mg PO DAILY [facility] Last Admin: 08/12/19 07:51 Dose: 20 mg Fluticasone/Salmeterol (Fluticasone-Salmeterol 113-14 Mcg Powder Inh) 1 puff INH BIDRT [facility] Last Admin: 08/12/19 06:16 Dose: 1 inhalation Sodium Chloride (Saline Flush) 10 ml FLUSH ASDIRECTED PRN PRN Reason: Keep Vein Open Discontinued Medications Digoxin (Lanoxin) 250 mcg IVPUSH Q6H [facility] Stop: 08/12/19 03:16 Last Admin: 08/11/19 21:33 Dose: 250 mcg Digoxin (Lanoxin) 250 mcg IVPUSH Q3H [facility] Stop: 08/12/19 02:31 Digoxin (Lanoxin) 250 mcg IVPUSH Q6H [facility] Stop: 08/12/19 05:31 Last Admin: 08/12/19 05:25 Dose: 250 mcg Sodium Chloride (Normal Saline) 500 mls @ 500 mls/hr IV ONETIME ONE Stop: 08/11/19 20:24 Last Infusion: 08/11/19 22:13 Dose: Infused Metoprolol Tartrate (Lopressor) 5 mg IVPUSH ONETIME STA Stop: 08/11/19 22:06 Last Admin: 08/11/19 22:21 Dose: 5 mg Prednisone (Prednisone) 40 mg PO DAILY [facility] Stop: 08/11/19 23:00 Last Admin: 08/11/19 22:15 Dose: Not Given Prednisone (Prednisone) 40 mg PO ONETIME ONE Stop: 08/11/19 22:01 Last Admin: 08/11/19 21:56 Dose: 40 mg Rivaroxaban (Xarelto) 20 mg PO DAILY [facility] Last Admin: 08/11/19 22:15 Dose: Not Given - Exam General: Reports: Alert, Oriented, Cooperative, No Acute Distress HEENT: Reports: Mucous Membr. Moist/[place] Neck: Reports: Supple, Trachea Midline, No Thyromegaly. Denies: Lymphadenopathy Lungs: Reports: Clear to Auscultation, Normal Respiratory Effort Cardiovascular: Reports: Regular Rate, Regular Rhythm, No Murmurs GI/Abdominal Exam: Normal Bowel Sounds, Soft, Non-Tender, No Organomegaly, No Distention, No Mass Extremities: Non-Tender, No Pedal Edema, Normal Capillary Refill Skin: Reports: Warm, Dry, Intact
== END 2019-08-12 15:55 | disposition home or self-care (01) | DRG 310 ==
LOC: VM.ED 15:15 → VM.MS 17:31 → OBSVTOIN 19:14
PROVIDERS: ADMIT Physician Assistant Medical; ATTEND Internal Medicine
DX: I48.91 Unspecified atrial fibrillation (principal); I95.9 Hypotension, unspecified; I25.10 Atherosclerotic heart disease of native coronary artery without angina pectoris; R91.1 Solitary pulmonary nodule; G47.33 Obstructive sleep apnea (adult) (pediatric); Z95.5 Presence of coronary angioplasty implant and graft; E78.00 Pure hypercholesterolemia, unspecified; J44.9 Chronic obstructive pulmonary disease, unspecified; Z90.710 Acquired absence of both cervix and uterus; Z91.09 Other allergy status, other than to drugs and biological substances; Z79.01 Long term (current) use of anticoagulants; Z79.02 Long term (current) use of antithrombotics/antiplatelets; Z79.82 Long term (current) use of aspirin; Z79.899 Other long term (current) drug therapy
CPT/HCPCS: 36415; 71045; 80048; 81001; 83735; 84443; 84484; 85025; 94640; 99284-GF; 99285-25; A9270-GY; J1160; J3490; J7040

== ENCOUNTER 2019-12-20 16:16 | Inpatient (IN) | payer MEDICARE, OTHER ==
[2019-12-20] MEDS ORDERED: Metoprolol Tartrate 5 MG/5 ML SDV IVPUSH ONE ×2 (16:52→22:16)
[2019-12-20 17:41] LABS: CHLORIDE,CL 101 mmol/L (98-107); SODIUM,NA 140 mmol/L (136-145)
[2019-12-20 17:42] LABS: ANION GAP 16.8 mmol/L (10-20)
--- NOTE | 2019-12-20 17:44 | EDM.PDOC ---
ED HPI GENERAL MEDICAL PROBLEM - General Chief Complaint: Respiratory Problem Stated Complaint: SOB Time Seen by Provider: 12/20/19 17:00 Source of Information: Reports: Patient, EMS History Limitations: Reports: No Limitations - History of Present Illness INITIAL COMMENTS - FREE TEXT/NARRATIVE: 69-year-old white female that is been having increased shortness of breath over the last 2 to 3 days got worse today about noon. She has had increased use of her oxygen over the last 24 hours to been using it full-time she is at 2 L nasal cannula during the day and states she usually uses it just at sleep. She does have jet nebulizer at home she uses at sleep but has a rescue inhaler has been using it little more frequently the last 2 days. She has noticed an increase in lower extremity edema and states she has noticed that her heart rate has been racing the last couple of days as well. She has no other complaints or symptoms at this time She does have a history of A. fib and is currently anticoagulated with Xarelto she takes metoprolol 25 extended release daily Duration: Day(s): Improves with: Reports: Other (Oxygen) - Related Data Allergies Allergy/AdvReac Type Severity Reaction Status Date / Time No Known Drug Allergies Allergy Other Verified 12/20/19 17:16 cats Allergy Unknown Sneezing Uncoded 03/02/18 12:34 Home Meds: Home Meds Tiotropium [Spiriva Handihaler] 18 mcg IH DAILY 02/18/18 [History] Cholecalciferol (Vitamin D3) [Vitamin D3] 3,000 unit PO DAILY 03/02/18 [History] Fluticasone/Vilanterol [Breo Ellipta 200-25 MCG Inhalation Kit] 1 puff INH DAILY 03/02/18 [History] Rosuvastatin [Crestor] 20 mg PO DAILY 09/15/18 [History] Clopidogrel [Plavix] 75 mg PO DAILY 08/11/19 [History] Metoprolol Succinate [Toprol XL] 25 mg PO DAILY 08/11/19 [History] Rivaroxaban [Xarelto] 20 mg PO DAILY 08/11/19 [History] Albuterol Sulfate [Albuterol Sulfate Hfa] 2 puff IH Q4HR PRN 08/22/19 [History] guaiFENesin [Mucinex] 600 mg PO BID PRN 08/22/19 [History] Calcium Carbonate 600 mg PO BIDMEALS 12/20/19 [History] Hydroxychloroquine [Plaquenil] 200 mg PO SUMOWEFR 12/20/19 [History] Hydroxychloroquine [Plaquenil] 300 mg PO ASDIRECTED 12/20/19 [History] Hydroxychloroquine [Plaquenil] 300 mg PO DAILY 12/20/19 [History] Nitroglycerin 0.4 mg SL ASDIRECTED PRN 12/20/19 [History] [place]-3/DHA/Epa/Fish Oil [Fish Oil 500 MG Softgel] 1 tab PO DAILY 12/20/19 [ History] Past Medical History - Past Health History Medical/Surgical History: Denies Medical/Surgical History Cardiovascular History: Reports: High Cholesterol Respiratory History: Reports: COPD Musculoskeletal History: Reports: Other (See Below) Other Musculoskeletal History: right hip septic arthritis Psychiatric History: Reports: Other (See Below) Other Psychiatric History: substance abuse - Past Surgical History HEENT Surgical History: Reports: Adenoidectomy, Tonsillectomy GI Surgical History: Reports: Other (See Below) Other GI Surgeries/Procedures: ventral hernia Female Surgical History: Reports: Section, Hysterectomy Musculoskeletal Surgical History: Reports: Other (See Below) Other Musculoskeletal Surgeries/Procedures:: hip surgery 2018 Social & Family History - Caffeine Use Caffeine Use: Reports: Coffee ED ROS GENERAL - Review of Systems Review Of Systems: See Below Constitutional: Reports: Fever, Weight Gain. Denies: Chills, Malaise, Weakness , Fatigue, Diaphoresis, Decreased Appetite HEENT: Reports: No Symptoms Respiratory: Reports: Shortness of Breath, Cough. Denies: Wheezing, Pleuritic Chest Pain, Sputum Cardiovascular: Reports: Edema, Palpitations. Denies: Chest Pain, Blood Pressure Problem, Claudication, Dyspnea on Exertion, Lightheadedness, Orthopnea , PND, Syncope Endocrine: Reports: No Symptoms GI/Abdominal: Reports: No Symptoms : Reports: No Symptoms Musculoskeletal: Reports: No Symptoms Skin: Reports: No Symptoms Neurological: Reports: No Symptoms Psychiatric: Reports: No Symptoms Hematologic/Lymphatic: Reports: No Symptoms Immunologic: Reports: No Symptoms ED EXAM, GENERAL - Physical Exam Exam: See Below Exam Limited By: No Limitations General Appearance: Alert, WD/WN, No Apparent Distress Eye Exam: Bilateral Eye: EOMI Ears: Normal External Exam, Normal Canal, Hearing Grossly Normal, Normal TMs Nose: Normal Inspection, Normal Mucosa, No Blood Throat/Mouth: Normal Inspection, Normal Lips, Normal Teeth, Normal Gums, Normal Oropharynx, Normal Voice, No Airway Compromise Head: Atraumatic, Normocephalic Neck: Normal Inspection, Supple, Non-Tender, Full Range of Motion Respiratory/Chest: No Respiratory Distress, Lungs Clear, No Accessory Muscle Use , Chest Non-Tender, Rhonchi, Other (Patient has diffuse rhonchi). No: Normal Breath Sounds Cardiovascular: Normal Peripheral Pulses, Regular Rate, Rhythm, No JVD, No Murmur, No Rub, JVD, Tachycardia, Other (Patient has A. fib heart rate is irregular regular). No: No Edema GI/Abdominal: Normal Bowel Sounds, Soft, Non-Tender, No Organomegaly, No Distention, No Abnormal Bruit, No Mass Extremities: Normal Inspection, Normal Range of Motion, Non-Tender, Other (3+ pedal edema bilateral). No: No Pedal Edema Neurological: Alert, Oriented, CN II-XII Intact, Normal Cognition Skin Exam: Warm, Dry, Intact, Normal Color, No Rash Course - Vital Signs Text/Narrative:: Patient states she smokes half pack a day although she is only smoked 2 to 3 cigarettes in the last couple of days CBC BMP BMP EKG chest x-ray patient was given 5 Lopressor IV secondary to rate control Patient with a BNP of 4900 on 15 September BNP was 2500 patient was given 40 mg Lasix IV in route Heart rate has decreased to 160 A. fib after 5 Lopressor IV Spoke with Dr. Lizeth Salinas she will accept admission and consultation we both believe this is more CHF than COPD exacerbation I will order 0.25 mg of digoxin IV see if this helps with rate control Chest x-ray no acute processes with a normal white blood cell count patient afebrile antibiotics were held at this time will be treated more on the CHF diagnosis Last Recorded V/S: Last Vital Signs Temp 37.7 C 12/20/19 16:20 Pulse 183 H 12/20/19 16:59 Resp 28 H 12/20/19 16:20 BP 134/98 H 12/20/19 16:59 Pulse Ox 98 12/20/19 16:20 - Orders/Labs/Meds Orders: Active Orders 24 hr Category Date Time Status Admission Status [Patient Status] [ADT] Routine ADT 12/20/19 18:05 Ordered TROPONIN I [CHEM] Stat Lab 12/20/19 18:11 Ordered TROPONIN I [CHEM] Stat Lab 12/20/19 18:12 Ordered Digoxin [Lanoxin] Med 12/20/19 18:13 Once 250 mcg IVPUSH ONETIME ONE Labs: Laboratory Tests 12/20/19 12/20/19 Range/Units 17:05 17:05 WBC 9.9 (4.0-10.0) x10^3/uL RBC 4.86 (4.00-5.50) x10^6/uL Hgb 14.0 D (12.0-16.0) g/dL Hct 43.0 (33.0-47.0) % MCV 88.5 (78.0-93.0) fL MCH 28.8 (26.0-32.0) pg MCHC 32.6 (32.0-36.0) g/dL RDW Coeff of Seferino 14.6 (10.0-15.0) % Plt Count 329 D (130-400) x10^3/uL Neut % (Auto) 87.7 H (50.0-80.0) % Lymph % (Auto) 7.5 L (25.0-50.0) % [place] % (Auto) 4.5 (2.0-11.0) % Eos % (Auto) 0.2 (0.0-4.0) % Baso % (Auto) 0.1 L (0.2-1.2) % Sodium 140 (136-145) mmol/L Potassium 4.8 (3.5-5.1) mmol/L Chloride 101 (98-107) mmol/L Carbon Dioxide 27 (21-32) mmol/L Anion Gap 16.8 (10-20) mmol/L BUN 14 (7-18) mg/dL Creatinine 1.1 H (0.55-1.02) mg/dL Est Cr Clr Drug Dosing TNP Estimated GFR (MDRD) 50 Glucose 90 (74-106) mg/dL Calcium 8.8 (8.5-10.1) mg/dL NT-Pro-B Natriuret Pep 4970 H (<=125) pg/mL Meds: Medications Discontinued Medications Generic Name Dose Route Start Last Admin Trade Name Freq PRN Reason Stop Dose Admin Metoprolol Tartrate 5 mg 12/20/19 16:52 12/20/19 16:59 Lopressor IVPUSH 12/20/19 16:53 5 mg ONETIME ONE Administration Departure - Departure Time of Disposition: 18:20 Disposition: Refer to Observation Condition: Good Clinical Impression: CHF exacerbation, A-fib, Shortness of breath - Discharge Information *PRESCRIPTION DRUG MONITORING PROGRAM REVIEWED*: No *COPY OF PRESCRIPTION DRUG MONITORING REPORT IN PATIENT GAYLA: No Referrals: Kathya Enrique MD [Primary Care Provider] - Forms: ED Department Discharge Sepsis Event Note - Focused Exam Vital Signs: Vital Signs Temp Pulse Pulse Resp BP BP Pulse Ox 12/20/19 16:59 183 H 134/98 H 12/20/19 16:20 37.7 C 189 H 28 H 129/84 98 Date Exam was Performed: 12/20/19 Time Exam was Performed: 18:13 - My Orders Last 24 Hours: My Active Orders 12/20/19 18:05 Admission Status [Patient Status] [ADT] Routine 12/20/19 18:12 TROPONIN I [CHEM] Stat 12/20/19 18:13 Digoxin [Lanoxin] 250 mcg IVPUSH ONETIME ONE - Assessment/Plan Last 24 Hours: My Active Orders 12/20/19 18:05 Admission Status [Patient Status] [ADT] Routine 12/20/19 18:12 TROPONIN I [CHEM] Stat 12/20/19 18:13 Digoxin [Lanoxin] 250 mcg IVPUSH ONETIME ONE
--- NOTE | 2019-12-20 17:58 | CR ---
[id number] RAD/RAD Chest PA or AP 1V EXAM: RAD Chest PA or AP 1V INDICATION: SHORT OF BREATH. COMPARISON: None. DISCUSSION: Cardiomediastinal silhouette is normal in size and contour. No infiltrate, effusion, pneumothorax, or edema. Chronic blunting of the costophrenic angles. Pulmonary hyperinflation. IMPRESSION: No acute cardiopulmonary abnormality. Gibran Rivers DO 12/20/19 [id number] Thank you for allowing us to participate in the care of your patient.
[2019-12-20] MEDS ORDERED: Digoxin 500 MCG/2 ML Amp IVPUSH ONE (18:13)
[2019-12-20] MEDS ORDERED: Nitroglycerin 0.4 MG Tab.SL SL PRN (19:34)
[2019-12-20] MEDS ORDERED: guaiFENesin 600 MG Tab.ER PO PRN (19:34)
[2019-12-20] MEDS ORDERED: Furosemide 20 MG/2 ML VIAL IV ONE (19:44)
[2019-12-20] MEDS ORDERED: Hydroxychloroquine 200 MG Tab PO SCH (20:00)
[2019-12-20] MEDS ORDERED: Levalbuterol HCl 1.25 MG/0.5 ML Neb NEB PRN (20:03)
[2019-12-20] MEDS: Digoxin 500 MCG/2 ML Amp IVPUSH SCH (20:16)
[2019-12-20] MEDS: Doxycycline 100 MG Cap PO SCH (20:31)
[2019-12-20] MEDS: Budesonide 0.5 MG/2 ML Neb Susp NEB SCH (20:33)
[2019-12-20] MEDS: Arformoterol 15 MCG/2 ML Neb Soln NEB SCH (20:33)
[2019-12-20] MEDS: Hydroxychloroquine 200 MG Tab PO SCH (23:32)
[2019-12-21] MEDS: Digoxin 500 MCG/2 ML Amp IVPUSH SCH (01:03)
--- NOTE | 2019-12-21 01:06 | HP ---
CHIEF COMPLAINT: Increasing shortness of breath. HISTORY OF PRESENT ILLNESS: This is a known severe COPD patient who comes in today with more swelling in her legs using her oxygen more during the day when normally she uses it at night, using her inhalers more, but with no chest pain despite a history of coronary artery disease and stenting. The patient has been coughing with a little bit of sputum. She tells me she has had a sore throat and like a cold about a week ago. She had a negative test for COVID. She is still smoking but has cut way back. She is on Xarelto due to her history of atrial fibrillation. She has had cardioversion in the past. She was admitted in July earlier this year for atrial fibrillation with RVR, but converted after getting some digoxin. She is only on metoprolol at home. The patient has not eaten anything today, but has not had any fever, chills, or vomiting. ALLERGIES: None other than cats which causes sneezing. MEDICATIONS: Her medication list is reviewed. She uses nitroglycerin as needed has not taken any, Crestor 20 mg daily, Spiriva 18 mcg daily, Toprol 25 mg daily, albuterol inhaler as needed, Xarelto 20 mg daily, Mucinex 600 b.i.d. as needed for cough, fish oil, calcium 600 b.i.d., and vitamin D 3000 units daily. PAST MEDICAL HISTORY: Includes coronary artery disease with stenting to the distal circumflex after a stress test that was positive in 07/2019. She also has a history of atrial fibrillation since 2019. She is status post cardioversion and had atrial fibrillation again in 07/2019. She is on Toprol and Xarelto. She has no history of heart failure. Her last EF was in 08/2018, it was 55% by echo. She had mild pulmonary hypertension, but no significant valvular lesions reported. She has severe COPD. She has FEV1 of 42%, 1.97. She has hyperlipidemia; smoking; obesity; obstructive sleep apnea, on CPAP; previous septic arthritis of her hip; and rheumatoid arthritis, on Plaquenil. PAST SURGICAL HISTORY: The patient has had some ventral hernia surgery, tonsils and adenoidectomy, hysterectomy, incision and drainage of the right hip, and C- section. FAMILY HISTORY: Both parents are . Mother had heart disease and a pacemaker. SOCIAL HISTORY: She is . She has 3 children. She lives at home with her . She denies any significant alcohol use. She smokes less than a half pack per day. REVIEW OF SYSTEMS: General: She has noted more swelling but not necessarily more weight gain. No fever, no chills. HEENT: She has no trouble swallowing. She did have a sore throat previously, but feels like that is improved. Respiratory: She has had some cough with increased sputum, but no wheezing. She has been more short of breath. Heart: She did not even notice that her heart was irregular, but states she is feeling much better now. Abdomen: No nausea, vomiting, or diarrhea. Extremities: She has not had any new joint pains. No rashes. : No trouble with urination. Psychologic: No depression. No confusion. Otherwise, all systems reviewed and found to be negative unless otherwise stated. PHYSICAL EXAMINATION: Vital Signs: It should be noted her heart rate was actually 189 on arrival in the ER. EKG showed atrial fibrillation. Her temperature was 99.9 at that time. Blood pressure 129/84, respiratory rate 28, and O2 was 98 on 5 L. She was able to be weaned down to 3 L, still saturating 99%. Heart rate down to 158. Blood pressure did drop to the 90 systolic. General: She is in no acute distress. She is resting comfortably in bed. Heart: Irregularly irregular with tachycardia. Lungs: Sounds are decreased throughout, but no crackles. No wheezes. Abdomen: Positive bowel sounds. Soft, nontender. Extremities: Warm and dry. She does have 3+ edema to her feet. She states normally they will swell but not her legs. Now, her ankles are swelling, they are 2+ bilaterally. Mental Status: She is alert. She is orientated x3. She is polite and cooperative. DIAGNOSTIC DATA: EKG again showed atrial fibrillation. Chest x-ray did not show any infiltrates. She did not have any pleural effusions or significant edema. Pulmonary hyperinflation noted. Lab work did show white count normal 9.9, hemoglobin 14, platelets 329. Sodium 140, potassium 4.8, chloride 101, bicarb 27, BUN 14, creatinine 1.1, glucose 90. Troponin normal. ProBNP 4970 and previously was around 1000. SARS or COVID testing negative. ASSESSMENT AND PLAN: 1. Atrial fibrillation with rapid ventricular response, possibly exacerbated by her COPD exacerbation with some hypoxia at home. She seems to be doing better. I held off on getting any ABG. She is not overly somnolent. We will monitor her with telemetry and continue loading her with dioxin, give her another 250 mcg now and again in 6 hours. I will hold off any further IV Lopressor or even trying Cardizem due to her hypotension. She is on Xarelto. We will continue with that. 2. Chronic obstructive pulmonary disease exacerbation. She is not wheezing. I will hold off on steroids but give her doxycycline 100 mg twice daily. 3. Edema, could be some chronic diastolic heart failure versus some edema from her chronic obstructive pulmonary disease and pulmonary hypertension. At this point due to hypotension, I am going to hold off on Lasix and just keep her legs up and put on the support stockings and see if that helps. 4. Severe chronic obstructive pulmonary disease. I am going to hold her home inhaler and put her on the Brovana and Pulmicort instead. She may use the Spiriva. I will use Xopenex p.r.n. if needed. 5. Rheumatoid arthritis. I did order Plaquenil. I will try to get pharmacy to verify her dosing. 6. Hyperlipidemia and coronary disease. She will continue on her Crestor and Toprol. 7. Obstructive sleep apnea. She cannot get her CPAP brought in, but we will try to use our AutoPAP. PLAN: At this point, the patient is admitted for observation. She is quite hopeful she is going to be able to return home tomorrow and certainly if she converts to a sinus rhythm like she did on her last admission, this will likely be the case. Currently, we will monitor with telemetry and use a couple more doses of IV digoxin. I will repeat lab work in the morning including her troponin. Oral doxycycline ordered for the COPD exacerbation with nebulizers. Dr. Enrique to assume care in the morning. She is a code level 1 for DVT prophylaxis. She is covered with Xarelto. MKA: 12/20/2019 20:19:49 MODL: 12/21/2019 00:26:37 /[id number]
[2019-12-21 07:34] LABS: CHLORIDE,CL 103 mmol/L (98-107); SODIUM,NA 140 mmol/L (136-145)
[2019-12-21 07:36] LABS: ANION GAP 12.9 mmol/L (10-20)
[2019-12-21] MEDS: Arformoterol 15 MCG/2 ML Neb Soln NEB SCH ×2 (07:52→19:21)
[2019-12-21] MEDS: Budesonide 0.5 MG/2 ML Neb Susp NEB SCH ×2 (07:52→19:22)
[2019-12-21] MEDS: Ipratropium 0.02% 0.5 MG/2.5 ML Neb Soln INH SCH ×4 (07:52→19:22)
[2019-12-21] MEDS ORDERED: Non-Formulary Medication 1 Each (Rosuvastatin [Crestor] 20 MG) PO SCH (08:00)
[2019-12-21] MEDS ORDERED: Non-Formulary Medication 1 Each (Tiotropium [Spiriva Handihaler] 18 MCG) IH SCH (08:00)
[2019-12-21] MEDS: Metoprolol Succinate 25 MG Tab.ER PO SCH (08:05)
[2019-12-21] MEDS: Clopidogrel 75 MG Tab PO SCH (08:06)
[2019-12-21] MEDS: Doxycycline 100 MG Cap PO SCH ×2 (08:06→19:18)
[2019-12-21] MEDS: atorvaSTATin 40 MG Tab PO SCH (08:07)
[2019-12-21] MEDS: Hydroxychloroquine 200 MG Tab PO SCH (08:08)
--- NOTE | 2019-12-21 08:44 | PCM.PN ---
- General Info Date of Service: 12/21/19 Subjective Update: 69 yo female admitted yesterday for a-fib with RVR and COPD exacerbation after presenting to the ER with shortness of breath. States she is feeling much better today. She slept well. She is at her baseline level of shortness of breath. She is coughing with some sputum production but also feels this is at her usual baseline. She had a fever a few days ago of 100.0 but none since. She denies any chest pain, palpitations, or lightheadedness. She has had rare episodes of diarrhea but otherwise denies GI symptoms. She had significant leg swelling yesterday as well, which is improved today after use of compression stockings. - Review of Systems General: Reports: No Symptoms HEENT: Reports: No Symptoms Pulmonary: Reports: Shortness of Breath, Cough, Sputum Cardiovascular: Reports: Edema. Denies: Chest Pain, Palpitations, Lightheadedness Gastrointestinal: Reports: No Symptoms Genitourinary: Reports: No Symptoms Musculoskeletal: Reports: No Symptoms Skin: Reports: No Symptoms Neurological: Reports: No Symptoms - Patient Data Vitals - Most Recent: Last Vital Signs Temp 36.4 C 12/21/19 06:00 Pulse 131 H 12/21/19 08:05 Resp 19 12/21/19 06:00 BP 108/71 12/21/19 08:05 Pulse Ox 93 L 12/21/19 07:55 Weight - Most Recent: 61.689 kg I&O - Last 24 Hours: Intake & Output 12/20/19 12/21/19 12/21/19 22:59 06:59 14:59 Intake Total 100 Balance 100 Lab Results Last 24 Hours: Laboratory Results - last 24 hr 12/20/19 12/20/19 12/20/19 Range/Units 17:05 17:05 17:05 WBC 9.9 (4.0-10.0) x10^3/uL RBC 4.86 (4.00-5.50) x10^6/uL Hgb 14.0 D (12.0-16.0) g/dL Hct 43.0 (33.0-47.0) % MCV 88.5 (78.0-93.0) fL MCH 28.8 (26.0-32.0) pg MCHC 32.6 (32.0-36.0) g/dL RDW Coeff of [place] 14.6 (10.0-15.0) % Plt Count 329 D (130-400) x10^3/uL Neut % (Auto) 87.7 H (50.0-80.0) % Lymph % (Auto) 7.5 L (25.0-50.0) % [place] % (Auto) 4.5 (2.0-11.0) % Eos % (Auto) 0.2 (0.0-4.0) % Baso % (Auto) 0.1 L (0.2-1.2) % Sodium 140 (136-145) mmol/L Potassium 4.8 (3.5-5.1) mmol/L Chloride 101 (98-107) mmol/L Carbon Dioxide 27 (21-32) mmol/L Anion Gap 16.8 (10-20) mmol/L BUN 14 (7-18) mg/dL Creatinine 1.1 H (0.55-1.02) mg/dL Est Cr Clr Drug Dosing TNP Estimated GFR (MDRD) 50 Glucose 90 (74-106) mg/dL Calcium 8.8 (8.5-10.1) mg/dL Troponin I < 0.017 (<=0.056) ng/mL NT-Pro-B Natriuret Pep 4970 H (<=125) pg/mL SARS-CoV-2 RNA (RT-PCR) (NEGATIVE) 12/20/19 12/21/19 12/21/19 Range/Units 18:50 06:28 06:28 WBC 8.6 (4.0-10.0) x10^3/uL RBC 4.80 (4.00-5.50) x10^6/uL Hgb 13.5 (12.0-16.0) g/dL Hct 42.1 (33.0-47.0) % MCV 87.7 (78.0-93.0) fL MCH 28.1 (26.0-32.0) pg MCHC 32.1 (32.0-36.0) g/dL RDW Coeff of [place] 14.4 (10.0-15.0) % Plt Count 307 (130-400) x10^3/uL Neut % (Auto) 92.1 H (50.0-80.0) % Lymph % (Auto) 4.9 L (25.0-50.0) % [place] % (Auto) 2.8 (2.0-11.0) % Eos % (Auto) 0.0 (0.0-4.0) % Baso % (Auto) 0.2 (0.2-1.2) % Sodium 140 (136-145) mmol/L Potassium 3.9 (3.5-5.1) mmol/L Chloride 103 (98-107) mmol/L Carbon Dioxide 28 (21-32) mmol/L Anion Gap 12.9 (10-20) mmol/L BUN 18 (7-18) mg/dL Creatinine 0.8 (0.55-1.02) mg/dL Est Cr Clr Drug Dosing 58.93 Estimated GFR (MDRD) > 60 Glucose 147 H (74-106) mg/dL Calcium 8.0 L (8.5-10.1) mg/dL Troponin I (<=0.056) ng/mL NT-Pro-B Natriuret Pep (<=125) pg/mL SARS-CoV-2 RNA (RT-PCR) Negative (NEGATIVE) 12/21/19 Range/Units 06:28 WBC (4.0-10.0) x10^3/uL RBC (4.00-5.50) x10^6/uL Hgb (12.0-16.0) g/dL Hct (33.0-47.0) % MCV (78.0-93.0) fL MCH (26.0-32.0) pg MCHC (32.0-36.0) g/dL RDW Coeff of [place] (10.0-15.0) % Plt Count (130-400) x10^3/uL Neut % (Auto) (50.0-80.0) % Lymph % (Auto) (25.0-50.0) % [place] % (Auto) (2.0-11.0) % Eos % (Auto) (0.0-4.0) % Baso % (Auto) (0.2-1.2) % Sodium (136-145) mmol/L Potassium (3.5-5.1) mmol/L Chloride (98-107) mmol/L Carbon Dioxide (21-32) mmol/L Anion Gap (10-20) mmol/L BUN (7-18) mg/dL Creatinine (0.55-1.02) mg/dL Est Cr Clr Drug Dosing Estimated GFR (MDRD) Glucose (74-106) mg/dL Calcium (8.5-10.1) mg/dL Troponin I < 0.017 (<=0.056) ng/mL NT-Pro-B Natriuret Pep (<=125) pg/mL SARS-CoV-2 RNA (RT-PCR) (NEGATIVE) Med Orders - Current: Current Medications Arformoterol Tartrate (Brovana) 15 mcg NEB BIDRT [facility] Last Admin: 12/21/19 07:52 Dose: 15 mcg Atorvastatin Calcium (Lipitor) 80 mg PO DAILY [facility] Last Admin: 12/21/19 08:07 Dose: 80 mg Budesonide (Pulmicort) 0.5 mg NEB BIDRT [facility] Last Admin: 12/21/19 07:52 Dose: 0.5 mg Clopidogrel Bisulfate (Plavix) 75 mg PO DAILY [facility] Last Admin: 12/21/19 08:06 Dose: 75 mg Doxycycline Hyclate (Vibramycin) 100 mg PO BID [facility] Last Admin: 12/21/19 08:06 Dose: 100 mg Guaifenesin (Mucinex) 600 mg PO BID PRN PRN Reason: Cough Last Admin: 12/20/19 20:31 Dose: 600 mg Hydroxychloroquine Sulfate (Plaquenil) 200 mg PO TuThSa@0800 [facility] Hydroxychloroquine Sulfate (Plaquenil) 200 mg PO SuMoWeFr@0800 [facility] Last Admin: 12/21/19 08:08 Dose: 200 mg Hydroxychloroquine Sulfate (Plaquenil) 200 mg PO TuThSa@2000 [facility] Last Admin: 12/20/19 23:32 Dose: Not Given Ipratropium [place] (Atrovent) 0.5 mg INH QIDRT [facility] Last Admin: 12/21/19 07:52 Dose: 0.5 mg Levalbuterol HCl (Xopenex) 1.25 mg NEB Q2H PRN PRN Reason: Shortness of Breath Metoprolol Succinate (Toprol Xl) 25 mg PO DAILY [facility] Last Admin: 12/21/19 08:05 Dose: 25 mg Nitroglycerin (Nitrostat) 0.4 mg SL ASDIRECTED PRN PRN Reason: Chest Pain Rivaroxaban (Xarelto) 20 mg PO BEDTIME [facility] Discontinued Medications Digoxin (Lanoxin) 250 mcg IVPUSH ONETIME ONE Stop: 12/20/19 18:14 Last Admin: 12/20/19 18:32 Dose: 250 mcg Digoxin (Lanoxin) 250 mcg IVPUSH Q6H [facility] Stop: 12/21/19 01:16 Last Admin: 12/21/19 01:03 Dose: 250 mcg Furosemide (Lasix) 10 mg IV ONETIME ONE Stop: 12/20/19 19:45 Last Admin: 12/20/19 21:19 Dose: Not Given Hydroxychloroquine Sulfate (Plaquenil) 200 mg PO TuThSa@1999 [facility] Last Admin: 12/20/19 22:59 Dose: Not Given Metoprolol Tartrate (Lopressor) 5 mg IVPUSH ONETIME ONE Stop: 12/20/19 16:53 Last Admin: 12/20/19 16:59 Dose: 5 mg Metoprolol Tartrate (Lopressor) 2.5 mg IVPUSH ONETIME ONE Stop: 12/20/19 22:17 Last Admin: 12/20/19 22:35 Dose: 2.5 mg - Exam General: Alert, Oriented, Cooperative, No Acute Distress HEENT: Mucous Membr. Moist/[place] Neck: Supple, Trachea Midline. No: Lymphadenopathy, Thyromegaly Lungs: Clear to Auscultation, Normal Respiratory Effort Cardiovascular: Irregular Rhythm, Tachycardia GI/Abdominal Exam: Normal Bowel Sounds, Soft, Non-Tender, No Distention, No Mass Extremities: Non-Tender, Pedal Edema Peripheral Pulses: 2+: Radial (L), Radial (R) Skin: Warm, Dry, Intact Neurological: No New Focal Deficit Sepsis Event Note - Evaluation Sepsis Screening Result: No Definite Risk - Focused Exam Vital Signs: Vital Signs Temp Pulse Pulse Resp BP BP Pulse Ox 12/21/19 08:05 131 H 108/71 12/21/19 07:55 12/21/19 06:00 36.4 C 116 H 19 102/68 95 12/21/19 01:50 36.6 C 136 H 17 114/65 95 12/21/19 01:03 139 H 12/20/19 22:35 144 H 106/72 12/20/19 22:00 36.7 C 144 H 18 106/72 95 Pulse Ox 12/21/19 08:05 12/21/19 07:55 93 L 12/21/19 06:00 12/21/19 01:50 12/21/19 01:03 12/20/19 22:35 12/20/19 22:00 Date Exam was Performed: 12/21/19 Time Exam was Performed: 09:50 - Problem List & Annotations (1) Atrial fibrillation with RVR SNOMED Code(s): 431711151860386 Code(s): I48.91 - UNSPECIFIED ATRIAL FIBRILLATION Status: Acute Current Visit: No (2) COPD (chronic obstructive pulmonary disease) SNOMED Code(s): 41856832 Code(s): J44.9 - CHRONIC OBSTRUCTIVE PULMONARY DISEASE, UNSPECIFIED Status : Acute Current Visit: No Qualifiers: COPD type: COPD with acute exacerbation Qualified Code(s): J44.1 - Chronic obstructive pulmonary disease with (acute) exacerbation (3) Leg swelling SNOMED Code(s): 870631340 Code(s): M79.89 - OTHER SPECIFIED SOFT TISSUE DISORDERS Status: Acute Current Visit: Yes (4) Rheumatoid arthritis SNOMED Code(s): 95766599 Code(s): M06.9 - RHEUMATOID ARTHRITIS, UNSPECIFIED Status: Chronic Current Visit: Yes Qualifiers: Rheumatoid arthritis location: unspecified site Rheumatoid factor presence : with rheumatoid factor Qualified Code(s): M05.9 - Rheumatoid arthritis with rheumatoid factor, unspecified (5) Coronary artery disease SNOMED Code(s): 17265148 Code(s): I25.10 - ATHSCL HEART DISEASE OF [place] CORONARY ARTERY W/O ANG PCTRS Status: Chronic Current Visit: No Qualifiers: Coronary Disease-Associated Artery/Lesion type: [place] artery [place] vs. transplanted heart: [place] heart Associated angina: without angina Qualified Code(s): I25.10 - Atherosclerotic heart disease of [place] coronary artery without angina pectoris (6) Hyperlipidemia SNOMED Code(s): 19190523 Code(s): E78.5 - HYPERLIPIDEMIA, UNSPECIFIED Status: Chronic Current Visit: No Qualifiers: Hyperlipidemia type: unspecified Qualified Code(s): E78.5 - Hyperlipidemia , unspecified (7) ANISH (obstructive sleep apnea) SNOMED Code(s): 65155945 Code(s): G47.33 - OBSTRUCTIVE SLEEP APNEA (ADULT) (PEDIATRIC) Status: Chronic Current Visit: No - Problem List Review Problem List Initiated/Reviewed/Updated: Yes - Assessment Assessment:: 69 yo female hospital day #2 admitted with a-fib with RVR and mild COPD exacerbation. Symptoms back to baseline this am but HR still above goal. - Plan Plan:: #1 Atrial fibrillation with RVR - Likely precipitated by COPD exacerbation. - Troponins negative x 2. - Labs in the ER otherwise unremarkable and are stable this am. - Patient has no history of thyroid disease but could consider checking a TSH if ongoing issues with rate control. - Rates now certainly better than on presentation. - She got her oral metoprolol this morning. - Will monitor through the morning and consider contacting cardiology if still > 120 consistently. - Continue xarelto. #2 COPD exacerbation - Symptoms back to baseline now, which means the a-fib was likely the more significant contributor. - Will continue doxycycline for a total of 5 days. - Will add prednisone if symptoms worsen again. - Continue inhalers/nebs as ordered. #3 Leg swelling - Likely related to #1 and #2 more than any true underlying independent CHF. - Improving with compression. - Will dose lasix if need be. #4 Rheumatoid arthritis #5 CAD #6 Hyperlipidemia - Continue home medications #7 ANISH - Continue CPAP. Patient will remain on observation throughout the day today - if HR do not improve, she really should transition to acute and stay for at least another 1- 2 nights. She is very motivated for discharge today. Will reassess early this afternoon. See details under problems above. Code status is full. Patient is on xarelto and does not require other VTE prophylaxis than that.
[2019-12-21] MEDS ORDERED: Metoprolol Succinate 25 MG Tab.ER PO ONE (11:53)
[2019-12-21] MEDS: Rivaroxaban 10 MG Tab PO SCH (19:17)
[2019-12-22] MEDS ORDERED: Metoprolol Succinate 25 MG Tab.ER PO ONE (02:28)
[2019-12-22] MEDS ORDERED: LORazepam 2 MG/ML SDV IVPUSH ONE (02:31)
[2019-12-22] MEDS: Budesonide 0.5 MG/2 ML Neb Susp NEB SCH ×2 (07:29→19:48)
[2019-12-22] MEDS: Arformoterol 15 MCG/2 ML Neb Soln NEB SCH ×2 (07:29→19:48)
[2019-12-22] MEDS: Ipratropium 0.02% 0.5 MG/2.5 ML Neb Soln INH SCH ×4 (07:29→19:48)
[2019-12-22] MEDS: Doxycycline 100 MG Cap PO SCH ×2 (07:41→19:47)
[2019-12-22] MEDS: atorvaSTATin 40 MG Tab PO SCH (07:42)
[2019-12-22] MEDS: Clopidogrel 75 MG Tab PO SCH (07:42)
[2019-12-22] MEDS: Metoprolol Succinate 25 MG Tab.ER PO SCH (07:42)
[2019-12-22] MEDS: Hydroxychloroquine 200 MG Tab PO SCH ×2 (07:43→19:48)
[2019-12-22] MEDS ORDERED: Digoxin 500 MCG/2 ML Amp IVPUSH ONE (08:35)
[2019-12-22] MEDS ORDERED: Metoprolol Succinate 50 MG Tab.ER PO SCH (08:45)
--- NOTE | 2019-12-22 09:26 | PCM.PN ---
- General Info Date of Service: 12/22/19 Subjective Update: 69 yo female hospital day #3 admitted with a-fib with RVR and mild COPD exacerbation after presenting to the ER for evaluation of shortness of breath. She did not sleep well last night due to increased anxiety. Her HR also remained elevated and she was given an additional dose of metoprolol without much change. She denies any symptoms at rest. She is quite short of breath when up and out of bed, even from her bed to the bathroom. This is not normal for her. Her cough does remain at baseline. No chest pain or lightheadedness. No syncope. She notes continued improvement in her leg swelling. She otherwise denies concerns. - Review of Systems General: Reports: No Symptoms HEENT: Reports: No Symptoms Pulmonary: Reports: Shortness of Breath, Cough Cardiovascular: Reports: Edema. Denies: Chest Pain, Palpitations Gastrointestinal: Reports: No Symptoms Genitourinary: Reports: No Symptoms Musculoskeletal: Reports: No Symptoms Skin: Reports: No Symptoms Neurological: Reports: No Symptoms - Patient Data Vitals - Most Recent: Last Vital Signs Temp 35.7 C L 12/22/19 06:00 Pulse 130 H 12/22/19 09:08 Resp 24 H 12/22/19 06:00 BP 109/71 12/22/19 09:08 Pulse Ox 96 12/22/19 07:34 Weight - Most Recent: 65.045 kg I&O - Last 24 Hours: Intake & Output 12/21/19 12/22/19 12/22/19 22:59 06:59 14:59 Intake Total 120 300 Balance 120 300 Med Orders - Current: Current Medications Arformoterol Tartrate (Brovana) 15 mcg NEB BIDRT [facility] Last Admin: 12/22/19 07:29 Dose: 15 mcg Atorvastatin Calcium (Lipitor) 80 mg PO DAILY [facility] Last Admin: 12/22/19 07:42 Dose: 80 mg Budesonide (Pulmicort) 0.5 mg NEB BIDRT [facility] Last Admin: 12/22/19 07:29 Dose: 0.5 mg Clopidogrel Bisulfate (Plavix) 75 mg PO DAILY [facility] Last Admin: 12/22/19 07:42 Dose: 75 mg Doxycycline Hyclate (Vibramycin) 100 mg PO BID [facility] Last Admin: 12/22/19 07:41 Dose: 100 mg Guaifenesin (Mucinex) 600 mg PO BID PRN PRN Reason: Cough Last Admin: 12/20/19 20:31 Dose: 600 mg Hydroxychloroquine Sulfate (Plaquenil) 200 mg PO TuThSa@0800 [facility] Last Admin: 12/22/19 07:43 Dose: 200 mg Hydroxychloroquine Sulfate (Plaquenil) 200 mg PO SuMoWeFr@0800 [facility] Last Admin: 12/21/19 08:08 Dose: 200 mg Hydroxychloroquine Sulfate (Plaquenil) 200 mg PO TuThSa@1999 [facility] Last Admin: 12/20/19 23:32 Dose: Not Given Ipratropium [place] (Atrovent) 0.5 mg INH QIDRT [facility] Last Admin: 12/22/19 07:29 Dose: 0.5 mg Levalbuterol HCl (Xopenex) 1.25 mg NEB Q2H PRN PRN Reason: Shortness of Breath Metoprolol Succinate (Toprol Xl) 25 mg PO DAILY [facility] Last Admin: 12/22/19 07:42 Dose: 25 mg Metoprolol Succinate (Toprol Xl) 50 mg PO DAILY [facility] Last Admin: 12/22/19 09:08 Dose: 50 mg Nitroglycerin (Nitrostat) 0.4 mg SL ASDIRECTED PRN PRN Reason: Chest Pain Rivaroxaban (Xarelto) 20 mg PO BEDTIME [facility] Last Admin: 12/21/19 19:17 Dose: 20 mg Discontinued Medications Digoxin (Lanoxin) 250 mcg IVPUSH ONETIME ONE Stop: 12/20/19 18:14 Last Admin: 12/20/19 18:32 Dose: 250 mcg Digoxin (Lanoxin) 250 mcg IVPUSH Q6H [facility] Stop: 12/21/19 01:16 Last Admin: 12/21/19 01:03 Dose: 250 mcg Digoxin (Lanoxin) 500 mcg IVPUSH ONETIME ONE Stop: 12/22/19 08:36 Last Admin: 12/22/19 09:08 Dose: 500 mcg Furosemide (Lasix) 10 mg IV ONETIME ONE Stop: 12/20/19 19:45 Last Admin: 12/20/19 21:19 Dose: Not Given Hydroxychloroquine Sulfate (Plaquenil) 200 mg PO TuThSa@1999 [facility] Last Admin: 12/20/19 22:59 Dose: Not Given Lorazepam (Ativan) 0.5 mg IVPUSH STAT ONE Stop: 12/22/19 02:32 Last Admin: 12/22/19 02:49 Dose: 0.5 mg Metoprolol Succinate (Toprol Xl) 25 mg PO ONETIME ONE Stop: 12/21/19 11:54 Last Admin: 12/21/19 13:38 Dose: 25 mg Metoprolol Succinate (Toprol Xl) 25 mg PO ONETIME ONE Stop: 12/22/19 02:29 Last Admin: 12/22/19 02:47 Dose: 25 mg Metoprolol Tartrate (Lopressor) 5 mg IVPUSH ONETIME ONE Stop: 12/20/19 16:53 Last Admin: 12/20/19 16:59 Dose: 5 mg Metoprolol Tartrate (Lopressor) 2.5 mg IVPUSH ONETIME ONE Stop: 12/20/19 22:17 Last Admin: 12/20/19 22:35 Dose: 2.5 mg - Exam General: Alert, Oriented, Cooperative, No Acute Distress HEENT: Mucous Membr. Moist/[place] Neck: Supple, Trachea Midline, No JVD, No Thyromegaly. No: Lymphadenopathy Lungs: Clear to Auscultation, Normal Respiratory Effort Cardiovascular: No Murmurs, Irregular Rhythm, Tachycardia GI/Abdominal Exam: Normal Bowel Sounds, Soft, Non-Tender, No Organomegaly, No Distention, No Mass Extremities: Normal Inspection, Pedal Edema Peripheral Pulses: 2+: Radial (L), Radial (R) Skin: Warm, Dry, Intact Sepsis Event Note - Evaluation Sepsis Screening Result: No Definite Risk - Focused Exam Vital Signs: Vital Signs Temp Pulse Pulse Pulse Resp BP BP 12/22/19 09:08 130 H 109/71 12/22/19 07:42 107 H 116/95 H 12/22/19 07:34 12/22/19 06:00 35.7 C L 137 H 24 H 119/91 H 12/22/19 02:47 144 H 118/75 12/22/19 02:00 35.7 C L 121 H 20 118/75 12/21/19 22:22 133 H 22 H 12/21/19 22:00 36.1 C 122 H 20 105/75 Pulse Ox Pulse Ox 12/22/19 09:08 12/22/19 07:42 06/04/20 07:34 96 12/22/19 06:00 94 L 12/22/19 02:47 12/22/19 02:00 94 L 12/21/19 22:22 92 L 12/21/19 22:00 88 L Date Exam was Performed: 12/22/19 Time Exam was Performed: 09:26 - Problem List & Annotations (1) Atrial fibrillation with RVR SNOMED Code(s): 223888537220892 Code(s): I48.91 - UNSPECIFIED ATRIAL FIBRILLATION Status: Acute Current Visit: No (2) COPD (chronic obstructive pulmonary disease) SNOMED Code(s): 44059454 Code(s): J44.9 - CHRONIC OBSTRUCTIVE PULMONARY DISEASE, UNSPECIFIED Status : Acute Current Visit: No Qualifiers: COPD type: COPD with acute exacerbation Qualified Code(s): J44.1 - Chronic obstructive pulmonary disease with (acute) exacerbation (3) Leg swelling SNOMED Code(s): 663364766 Code(s): M79.89 - OTHER SPECIFIED SOFT TISSUE DISORDERS Status: Acute Current Visit: Yes (4) Rheumatoid arthritis SNOMED Code(s): 96275696 Code(s): M06.9 - RHEUMATOID ARTHRITIS, UNSPECIFIED Status: Chronic Current Visit: Yes Qualifiers: Rheumatoid arthritis location: unspecified site Rheumatoid factor presence : with rheumatoid factor Qualified Code(s): M05.9 - Rheumatoid arthritis with rheumatoid factor, unspecified (5) Coronary artery disease SNOMED Code(s): 85575528 Code(s): I25.10 - ATHSCL HEART DISEASE OF [place] CORONARY ARTERY W/O ANG PCTRS Status: Chronic Current Visit: No Qualifiers: Coronary Disease-Associated Artery/Lesion type: [place] artery [place] vs. transplanted heart: [place] heart Associated angina: without angina Qualified Code(s): I25.10 - Atherosclerotic heart disease of [place] coronary artery without angina pectoris (6) Hyperlipidemia SNOMED Code(s): 27933156 Code(s): E78.5 - HYPERLIPIDEMIA, UNSPECIFIED Status: Chronic Current Visit: No Qualifiers: Hyperlipidemia type: unspecified Qualified Code(s): E78.5 - Hyperlipidemia , unspecified (7) ANISH (obstructive sleep apnea) SNOMED Code(s): 47864246 Code(s): G47.33 - OBSTRUCTIVE SLEEP APNEA (ADULT) (PEDIATRIC) Status: Chronic Current Visit: No - Problem List Review Problem List Initiated/Reviewed/Updated: Yes - My Orders Last 24 Hours: My Active Orders 12/22/19 08:45 Metoprolol Succinate [Toprol XL] 50 mg PO DAILY 12/22/19 09:20 Admission Status [Patient Status] [ADT] Routine - Assessment Assessment:: 69 yo female hospital day #2 admitted with a-fib with RVR and mild COPD exacerbation. Symptoms ok at rest but return with any exertion. HR remain above goal. - Plan Plan:: #1 Atrial fibrillation with RVR - Likely precipitated by COPD exacerbation. - Troponins negative x 2. - Labs in the ER otherwise unremarkable and were stable yesterday am. - Patient has no history of thyroid disease but will check a TSH tomorrow. - Rates now certainly better than on presentation but consistently remain above goal. - Called and spoke with cardiology this morning and they recommended another 500 mcg of IV digoxin as well as increasing her metoprolol (as long as SBP is > 90). If this is not effective, then she will likely need transfer to [place] for [facility]IGEL with cardioversion. - Will do another 50 mg of metoprolol this morning and increase am dose tomorrow to 75 mg. - Continue xarelto. #2 COPD exacerbation - Symptoms more likely related to her a-fib than anything else. - Will continue doxycycline for a total of 5 days. - Will add prednisone if symptoms worsen again. - Continue inhalers/nebs as ordered. #3 Leg swelling - Likely related to #1 and #2 more than any true underlying independent CHF. - Improving with compression. - Will dose lasix if need be but main focus is on rate control at this time. #4 Rheumatoid arthritis #5 CAD #6 Hyperlipidemia - Continue home medications #7 ANISH - Continue CPAP. Patient will be transitioned over to acute today as it is presumed she will require at least another 2 midnights of hospitalization - she is agreeable to transfer to [place] if need be, which will be reassessed this afternoon depending on how the interventions this morning work. See details under problems above. Code status is full. Patient is on xarelto and does not require other VTE prophylaxis than that.
--- NOTE | 2019-12-22 15:13 | PCM.SN.2 ---
- Free Text/Narrative Note: HR much better this pm. Will not require transfer to [place] at this point. Will start 0.25 mg oral digoxin tomorrow as per cardiology. Will also increase metoprolol to 75 mg as this seems to be working well. BP has tolerated medication adjustments without any issues. Patient symptoms also improved with improved HR control.
[2019-12-22] MEDS: Rivaroxaban 10 MG Tab PO SCH (19:47)
[2019-12-23] MEDS: Budesonide 0.5 MG/2 ML Neb Susp NEB SCH ×2 (06:24→20:06)
[2019-12-23] MEDS: Ipratropium 0.02% 0.5 MG/2.5 ML Neb Soln INH SCH ×4 (06:25→20:06)
[2019-12-23] MEDS: Arformoterol 15 MCG/2 ML Neb Soln NEB SCH ×2 (06:42→20:06)
[2019-12-23 07:16] LABS: ANION GAP 9.9 mmol/L (10-20); CHLORIDE,CL 104 mmol/L (98-107); SODIUM,NA 143 mmol/L (136-145)
--- NOTE | 2019-12-23 08:26 | PCM.PN ---
- General Info Date of Service: 12/23/19 Subjective Update: 69 yo female hospital day #4 admitted with a-fib with RVR and COPD exacerbation after presenting to the ER for evaluation of shortness of breath. States she is feeling better today. Is back to baseline shortness of breath with exertion. Cough remains at baseline. No chest pain or palpitations. Denies any side effects from the digoxin. - Review of Systems General: Reports: No Symptoms HEENT: Reports: No Symptoms Pulmonary: Reports: No Symptoms Cardiovascular: Reports: No Symptoms Gastrointestinal: Reports: No Symptoms Genitourinary: Reports: No Symptoms Musculoskeletal: Reports: No Symptoms Skin: Reports: No Symptoms Neurological: Reports: No Symptoms - Patient Data Vitals - Most Recent: Last Vital Signs Temp 36.4 C 12/23/19 06:00 Pulse 94 12/23/19 06:00 Resp 17 12/23/19 06:00 BP 127/87 12/23/19 06:00 Pulse Ox 96 12/23/19 06:00 Weight - Most Recent: 65.045 kg I&O - Last 24 Hours: Intake & Output 12/22/19 12/23/19 12/23/19 22:59 06:59 14:59 Intake Total 260 Balance 260 Lab Results Last 24 Hours: Laboratory Results - last 24 hr 12/23/19 12/23/19 Range/Units 06:32 06:32 WBC 7.5 (4.0-10.0) x10^3/uL RBC 4.77 (4.00-5.50) x10^6/uL Hgb 13.7 (12.0-16.0) g/dL Hct 42.7 (33.0-47.0) % MCV 89.5 (78.0-93.0) fL MCH 28.7 (26.0-32.0) pg MCHC 32.1 (32.0-36.0) g/dL RDW Coeff of [place] 14.5 (10.0-15.0) % Plt Count 313 (130-400) x10^3/uL Neut % (Auto) 75.2 (50.0-80.0) % Lymph % (Auto) 15.9 L (25.0-50.0) % [place] % (Auto) 7.6 (2.0-11.0) % Eos % (Auto) 0.9 (0.0-4.0) % Baso % (Auto) 0.4 (0.2-1.2) % Sodium 143 (136-145) mmol/L Potassium 3.9 (3.5-5.1) mmol/L Chloride 104 (98-107) mmol/L Carbon Dioxide 33 H (21-32) mmol/L Anion Gap 9.9 L (10-20) mmol/L BUN 12 (7-18) mg/dL Creatinine 0.7 (0.55-1.02) mg/dL Est Cr Clr Drug Dosing 67.34 mL/min Estimated GFR (MDRD) > 60 Glucose 86 (74-106) mg/dL Calcium 8.2 L (8.5-10.1) mg/dL TSH, Ultra Sensitive 3.413 (0.358-3.74) uIU/mL Med Orders - Current: Current Medications Arformoterol Tartrate (Brovana) 15 mcg NEB BIDRT [facility] Last Admin: 12/23/19 06:42 Dose: 15 mcg Atorvastatin Calcium (Lipitor) 80 mg PO DAILY [facility] Last Admin: 12/22/19 07:42 Dose: 80 mg Budesonide (Pulmicort) 0.5 mg NEB BIDRT [facility] Last Admin: 12/23/19 06:24 Dose: 0.5 mg Clopidogrel Bisulfate (Plavix) 75 mg PO DAILY [facility] Last Admin: 12/22/19 07:42 Dose: 75 mg Digoxin (Lanoxin) 250 mcg PO DAILY [facility] Doxycycline Hyclate (Vibramycin) 100 mg PO BID [facility] Last Admin: 12/22/19 19:47 Dose: 100 mg Guaifenesin (Mucinex) 600 mg PO BID PRN PRN Reason: Cough Last Admin: 12/20/19 20:31 Dose: 600 mg Hydroxychloroquine Sulfate (Plaquenil) 200 mg PO [email or web address] [facility] Last Admin: 12/22/19 07:43 Dose: 200 mg Hydroxychloroquine Sulfate (Plaquenil) 200 mg PO [email or web address] [facility] Last Admin: 12/21/19 08:08 Dose: 200 mg Hydroxychloroquine Sulfate (Plaquenil) 200 mg PO [email or web address] [facility] Last Admin: 12/22/19 19:48 Dose: 200 mg Ipratropium [place] (Atrovent) 0.5 mg INH QIDRT [facility] Last Admin: 12/23/19 06:25 Dose: 0.5 mg Levalbuterol HCl (Xopenex) 1.25 mg NEB Q2H PRN PRN Reason: Shortness of Breath Metoprolol Succinate (Toprol Xl) 75 mg PO DAILY [facility] Nitroglycerin (Nitrostat) 0.4 mg SL ASDIRECTED PRN PRN Reason: Chest Pain Rivaroxaban (Xarelto) 20 mg PO BEDTIME [facility] Last Admin: 12/22/19 19:47 Dose: 20 mg Discontinued Medications Digoxin (Lanoxin) 250 mcg IVPUSH ONETIME ONE Stop: 12/20/19 18:14 Last Admin: 12/20/19 18:32 Dose: 250 mcg Digoxin (Lanoxin) 250 mcg IVPUSH Q6H [facility] Stop: 12/21/19 01:16 Last Admin: 12/21/19 01:03 Dose: 250 mcg Digoxin (Lanoxin) 500 mcg IVPUSH ONETIME ONE Stop: 12/22/19 08:36 Last Admin: 12/22/19 09:08 Dose: 500 mcg Furosemide (Lasix) 10 mg IV ONETIME ONE Stop: 12/20/19 19:45 Last Admin: 12/20/19 21:19 Dose: Not Given Hydroxychloroquine Sulfate (Plaquenil) 200 mg PO [email or web address] [facility] Last Admin: 12/20/19 22:59 Dose: Not Given Lorazepam (Ativan) 0.5 mg IVPUSH STAT ONE Stop: 12/22/19 02:32 Last Admin: 12/22/19 02:49 Dose: 0.5 mg Metoprolol Succinate (Toprol Xl) 25 mg PO DAILY [facility] Last Admin: 12/22/19 07:42 Dose: 25 mg Metoprolol Succinate (Toprol Xl) 25 mg PO ONETIME ONE Stop: 12/21/19 11:54 Last Admin: 12/21/19 13:38 Dose: 25 mg Metoprolol Succinate (Toprol Xl) 25 mg PO ONETIME ONE Stop: 12/22/19 02:29 Last Admin: 12/22/19 02:47 Dose: 25 mg Metoprolol Succinate (Toprol Xl) 50 mg PO DAILY [facility] Last Admin: 12/22/19 09:08 Dose: 50 mg Metoprolol Tartrate (Lopressor) 5 mg IVPUSH ONETIME ONE Stop: 12/20/19 16:53 Last Admin: 12/20/19 16:59 Dose: 5 mg Metoprolol Tartrate (Lopressor) 2.5 mg IVPUSH ONETIME ONE Stop: 12/20/19 22:17 Last Admin: 12/20/19 22:35 Dose: 2.5 mg - Exam General: Alert, Oriented, Cooperative, No Acute Distress HEENT: Mucous Membr. Moist/[place] Neck: Supple, Trachea Midline, No Thyromegaly. No: Lymphadenopathy Lungs: Clear to Auscultation, Normal Respiratory Effort Cardiovascular: Regular Rate, No Murmurs, Irregular Rhythm GI/Abdominal Exam: Normal Bowel Sounds, Soft, Non-Tender, No Organomegaly, No Distention, No Mass Extremities: Pedal Edema (2+ just at the ankles bilaterally) Peripheral Pulses: 2+: Radial (L), Radial (R) Skin: Warm, Dry, Intact Sepsis Event Note - Evaluation Sepsis Screening Result: No Definite Risk - Focused Exam Vital Signs: Vital Signs Temp Pulse Resp BP Pulse Ox 12/23/19 06:00 36.4 C 94 17 127/87 96 12/23/19 02:00 36.6 C 89 18 134/96 H 96 12/22/19 22:00 36.4 C 82 19 129/85 97 Date Exam was Performed: 12/23/19 Time Exam was Performed: 08:21 - Problem List & Annotations (1) Atrial fibrillation with RVR SNOMED Code(s): 216002612604213 Code(s): I48.91 - UNSPECIFIED ATRIAL FIBRILLATION Status: Acute Current Visit: No (2) COPD (chronic obstructive pulmonary disease) SNOMED Code(s): 21677234 Code(s): J44.9 - CHRONIC OBSTRUCTIVE PULMONARY DISEASE, UNSPECIFIED Status : Acute Current Visit: No Qualifiers: COPD type: COPD with acute exacerbation Qualified Code(s): J44.1 - Chronic obstructive pulmonary disease with (acute) exacerbation (3) Leg swelling SNOMED Code(s): 874114603 Code(s): M79.89 - OTHER SPECIFIED SOFT TISSUE DISORDERS Status: Acute Current Visit: Yes (4) Rheumatoid arthritis SNOMED Code(s): 85053351 Code(s): M06.9 - RHEUMATOID ARTHRITIS, UNSPECIFIED Status: Chronic Current Visit: Yes Qualifiers: Rheumatoid arthritis location: unspecified site Rheumatoid factor presence : with rheumatoid factor Qualified Code(s): M05.9 - Rheumatoid arthritis with rheumatoid factor, unspecified (5) Coronary artery disease SNOMED Code(s): 69306260 Code(s): I25.10 - ATHSCL HEART DISEASE OF [place] CORONARY ARTERY W/O ANG PCTRS Status: Chronic Current Visit: No Qualifiers: Coronary Disease-Associated Artery/Lesion type: [place] artery [place] vs. transplanted heart: [place] heart Associated angina: without angina Qualified Code(s): I25.10 - Atherosclerotic heart disease of [place] coronary artery without angina pectoris (6) Hyperlipidemia SNOMED Code(s): 11386724 Code(s): E78.5 - HYPERLIPIDEMIA, UNSPECIFIED Status: Chronic Current Visit: No Qualifiers: Hyperlipidemia type: unspecified Qualified Code(s): E78.5 - Hyperlipidemia , unspecified (7) ANISH (obstructive sleep apnea) SNOMED Code(s): 64673507 Code(s): G47.33 - OBSTRUCTIVE SLEEP APNEA (ADULT) (PEDIATRIC) Status: Chronic Current Visit: No - Problem List Review Problem List Initiated/Reviewed/Updated: Yes - My Orders Last 24 Hours: My Active Orders 12/22/19 09:20 Admission Status [Patient Status] [ADT] Routine 12/23/19 08:00 Digoxin [Lanoxin] 250 mcg PO DAILY Metoprolol Succinate [Toprol XL] 75 mg PO DAILY - Assessment Assessment:: 69 yo female hospital day #2 admitted with a-fib with RVR and mild COPD exacerbation. Doing much better today. - Plan Plan:: #1 Atrial fibrillation with RVR - Likely precipitated by COPD exacerbation. - Troponins negative x 2. - Labs in the ER otherwise unremarkable and were stable yesterday am. TSH normal this am. - HR now controlled on digoxin and metoprolol. - If HR increase again, she will need transfer to [place] for consideration of cardioversion. - Continue xarelto. #2 COPD exacerbation - Symptoms more likely related to her a-fib than anything else. - Will continue doxycycline while hospitalized but she will not need to be discharged on this. - Will add prednisone if symptoms worsen again. - Continue inhalers/nebs as ordered. #3 Leg swelling - Likely related to #1 and #2 more than any true underlying independent CHF. - Improving with compression. - Will dose lasix if need be but main focus is on rate control at this time. #4 Rheumatoid arthritis #5 CAD #6 Hyperlipidemia - Continue home medications #7 ANISH - Continue CPAP. Patient will remain on acute today to ensure heart rates remain controlled off IV medications - anticipate she will be discharged home tomorrow barring any unforeseen events. See details under problems above. Code status is full. Patient is on xarelto and does not require other VTE prophylaxis than that. Patient was signed out to Dr. Vu to cover for the weekend.
[2019-12-23] MEDS: Metoprolol Succinate 50 MG Tab.ER PO SCH (08:49)
[2019-12-23] MEDS: Doxycycline 100 MG Cap PO SCH ×2 (08:49→20:06)
[2019-12-23] MEDS: Digoxin 250 MCG Tab PO SCH (08:50)
[2019-12-23] MEDS: Clopidogrel 75 MG Tab PO SCH (08:50)
[2019-12-23] MEDS: atorvaSTATin 40 MG Tab PO SCH (08:50)
[2019-12-23] MEDS: Hydroxychloroquine 200 MG Tab PO SCH (08:51)
[2019-12-23] MEDS: Rivaroxaban 10 MG Tab PO SCH (20:06)
[2019-12-24] MEDS: Budesonide 0.5 MG/2 ML Neb Susp NEB SCH (06:28)
[2019-12-24] MEDS: Ipratropium 0.02% 0.5 MG/2.5 ML Neb Soln INH SCH ×2 (06:28→11:14)
[2019-12-24] MEDS: Arformoterol 15 MCG/2 ML Neb Soln NEB SCH (06:28)
[2019-12-24 08:16] LABS: ANION GAP 8.1 mmol/L (10-20); CHLORIDE,CL 103 mmol/L (98-107); SODIUM,NA 142 mmol/L (136-145)
[2019-12-24] MEDS: Doxycycline 100 MG Cap PO SCH (08:40)
[2019-12-24] MEDS: Metoprolol Succinate 50 MG Tab.ER PO SCH (08:41)
[2019-12-24] MEDS: Hydroxychloroquine 200 MG Tab PO SCH (08:42)
[2019-12-24] MEDS: Digoxin 250 MCG Tab PO SCH (08:42)
[2019-12-24] MEDS: atorvaSTATin 40 MG Tab PO SCH (08:42)
[2019-12-24] MEDS: Clopidogrel 75 MG Tab PO SCH (08:42)
--- NOTE | 2019-12-24 12:15 | PN ---
Progress Note for SKY ZUÑIGA Date: 12/24/2019 Room #: VM.211 SUBJECTIVE: This is the patient's 5th hospital day, being admitted with atrial fibrillation with rapid rate and chronic obstructive pulmonary disease exacerbation. She is feeling better. Her pulse rate has come down to around 100. She still does get a little winded with activity. She denies any chest palpitations. She had been started on digoxin and her heart rhythm has stayed less than 130s. OBJECTIVE: Vital Signs: Her weight has been not been done today yet. Yesterday, has been up 3.4 kg since admission. Her temperature is 36.5, pulse is 109, blood pressure is 106/83, respirations are 16, saturations are 98% on 2 L. Telemetry has shown rates variable from 110s to 120s, that is her atrial fibrillation. Skin: [place], warm, and dry. Heart: Irregularly irregular. Lungs: Clear to auscultation. Abdomen: Soft. Extremities: Have no edema. LABORATORY DATA TODAY: Shows that her sodium is 142, potassium 4.1, creatinine 0.8. GFR greater than 60. Glucose 95. ProBNP is about the same at 5182. Digoxin level is 1.33. EKG is pending at this time. IMPRESSION: 1. Atrial fibrillation with rapid ventricular response, now slowed. 2. Chronic obstructive pulmonary disease exacerbation, improved. 3. Rheumatoid arthritis. 4. Coronary artery disease. 5. Hyperlipidemia. 6. Obstructive sleep apnea. PLAN: We will send the patient home as she is felt to be stabilized, however, her rate is not optimally controlled. She will follow up to see Dr. Rasheed within a weeks' time. She will go home on her home oxygen. Please refer to discharge summary for that. GM12/24/2019 08:55:39 MODL: 12/24/2019 09:42:59 /[id number]
--- NOTE | 2019-12-26 09:04 | DISCH ---
PRIMARY DIAGNOSES: 1. Atrial fibrillation with rapid ventricular response. 2. Persistent atrial fibrillation. 3. Acute exacerbation of congestive heart failure. 4. Pulmonary hypertension. 5. Severe chronic obstructive pulmonary disease. 6. Possible bronchitis. SUMMARY OF HISTORY AND PHYSICAL: The patient presented in the emergency room who came in with more swelling of her lower legs and more short of breath. She had been coughing some sputum with a sore throat, had a negative COVID test. She still smokes. She is on Xarelto due to history of atrial fib. She has had cardioversion in the past. PHYSICAL EXAMINATION: Vital Signs: On admission, her heart rate was 189 and irregular rate. Her temperature 99.9, blood pressure 129/84, respiratory rate 28, saturations are 98%. She was weaned down to 3 L. Lungs: Had decreased throughout, but no crackles or wheezes noted. Heart: Irregular and fast. Extremities: 3+ edema present. DIAGNOSTIC DATA: EKG shows atrial fib, rapid rate. Chest x-ray, no infiltrates, no pleural effusions. Lab work showed her white blood cell count 9.9, hemoglobin 14, platelets 329. Sodium 140, potassium 4.8, chloride 101, bicarb 27, BUN 14, creatinine 1.1. Troponin normal. ProBNP 4970. SUMMARY OF HOSPITAL COURSE: The patient was admitted to Acute Care. She was given IV Lopressor for rate control. She had amiodarone added. She was placed on doxycycline in case there may have been a bronchitis present. The patient was held off on Lasix because of problems with hypotension and with rate control was hoping that her weight would improve. The patient was placed on Brovana and Pulmicort in the hospital instead of Breo. She was given oxygen. The patient was code level 1 when she was admitted. The patient did have improvement of her fluid on her extremities and had noted though that her weight had actually gone up 4 kg since admission, probably due to better nutritional status. Her pulse did slow into the 110s to 120s. Her blood pressure stayed around 106/83, so felt not able to go further up on her metoprolol. Her oxygen sats maintained at 9.6. The patient's EKG was repeated on 12/24/2019 which showed rate down to 118, atrial fib. Her proBNP level had been rechecked and that had actually stayed about the same range, it was 5182 on 12/24/2019 with her sodium 142, potassium 4.1 creatinine 0.8, GFR greater than 60. Dig level was checked, it was 1.33 with normal range being 0.9 to 2.0. The patient was felt stable to go home because of her rate being better controlled. MEDICATIONS: At the time of discharge will be Spiriva 18 mcg 1 puff daily, Breo 200/25 one puff daily, vitamin D 1000 units she takes 3 pills daily, Crestor 20 mg daily, Xarelto 20 mg at bedtime, Plavix 75 mg daily, albuterol 2 puffs q.i.d. p.r.n., Mucinex 600 mg b.i.d. p.r.n., Plaquenil 200 mg on Thursday, Thursday, Thursday, and Thursday, nitroglycerin 0.4 sublingual q.5 minutes x3 p.r.n., Plaquenil 200 mg 1 p.o. b.i.d., omega-3 one pill daily, calcium 600 mg 1 pill twice a day, digoxin 250 mcg 1 pill daily, metoprolol-XL 50 mg to take 75 mg daily. DISCHARGE INSTRUCTIONS: The patient is to not smoke. She is to follow up and see Dr. Kathya Enrique within a weeks' time at the clinic. She will continue on her home oxygen. The patient's heart condition is somewhat tenuous and most likely will cause readmission in her current state of health. GM12/24/2019 09:13:36 MODL: 12/24/2019 10:52:09 /[id number]
== END 2019-12-24 11:30 | disposition home or self-care (01) | DRG 308 ==
LOC: VM.ED 16:16 → VM.MS 18:05 → OBSVTOIN 12-22 09:20
PROVIDERS: ADMIT Family Medicine; ATTEND Family Medicine
DX: I48.19 Other persistent atrial fibrillation (principal); I50.33 Acute on chronic diastolic (congestive) heart failure; M06.9 Rheumatoid arthritis, unspecified; J44.1 Chronic obstructive pulmonary disease with (acute) exacerbation; M05.9 Rheumatoid arthritis with rheumatoid factor, unspecified; R09.02 Hypoxemia; M79.89 Other specified soft tissue disorders; I25.10 Atherosclerotic heart disease of native coronary artery without angina pectoris; E78.5 Hyperlipidemia, unspecified; G47.33 Obstructive sleep apnea (adult) (pediatric); I27.20 Pulmonary hypertension, unspecified; Z20.828 Contact with and (suspected) exposure to other viral communicable diseases; F17.200 Nicotine dependence, unspecified, uncomplicated; E78.00 Pure hypercholesterolemia, unspecified; Z79.01 Long term (current) use of anticoagulants; Z79.899 Other long term (current) drug therapy; Z95.5 Presence of coronary angioplasty implant and graft; Z90.710 Acquired absence of both cervix and uterus; Z91.09 Other allergy status, other than to drugs and biological substances; Z99.81 Dependence on supplemental oxygen; Z79.02 Long term (current) use of antithrombotics/antiplatelets; Z90.89 Acquired absence of other organs
CPT/HCPCS: 36415; 71045; 80048; 80162; 83880; 84443; 84484; 85025; 93005; 94640; 94660; 94760; 96374; 96375; 96376; 99284-GF; 99285-25; A9270-GY; G0378; J1160; J2060; J3490; U0002

== ENCOUNTER 2020-01-04 16:02 | Emergency (ER) | payer MEDICARE, OTHER ==
[2020-01-04] MEDS ORDERED: Sodium Chloride 0.9% 10 ML Syringe FLUSH PRN (16:29)
--- NOTE | 2020-01-04 17:11 | CR ---
[id number] RAD/RAD Chest PA And Lateral EXAM: RAD Chest PA And Lateral INDICATION: CHEST PAIN,SHORT OF BREATH. COMPARISON: December 20, 2019. DISCUSSION: Cardiomegaly and central vascular congestion. Blunting of the costophrenic sulci bilaterally. Findings are nonspecific. Differential diagnosis includes scarring versus small effusions. Slight tenting of the left hemidiaphragm not seen previously. Noncontrast chest CT is recommended to better evaluate this finding and exclude any underlying radiographically occult pathology. IMPRESSION: Findings suggesting mild fluid retention the chest, described above. Abnormal appearance of left hemidiaphragm not seen previously. Avery Roy MD 01/04/20 [id number] Thank you for allowing us to participate in the care of your patient.
--- NOTE | 2020-01-04 17:16 | EDM.PDOC ---
ED HPI GENERAL MEDICAL PROBLEM - General Chief Complaint: Respiratory Problem Stated Complaint: SOB Time Seen by Provider: 01/04/20 17:00 Source of Information: Reports: Patient History Limitations: Reports: No Limitations - History of Present Illness INITIAL COMMENTS - FREE TEXT/NARRATIVE: Patient comes emergency department today with her granddaughter with complaints of chest pain shortness of breath and increasing edema. The patient has a longstanding history of known COPD as well as new onset of atrial fib for about a month. She was seen in the primary care clinic just a couple of days ago. Over the past 2 days she has had increasing shortness of breath and difficulty breathing. No more cough or sputum production than normal. No fever no chills. She has not been exposed anyone ill. This morning she had a pressure on her midsternum that resolved shortly after taking a couple nitro tablets. She feels very little energy. She does complain of questionable body aches. Increased wheezing. Increased exercise intolerance and shortness of breath. No abdominal pain nausea or vomiting. She does have quite a bit more swelling on her lower extremities. - Related Data Allergies Allergy/AdvReac Type Severity Reaction Status Date / Time cat dander Allergy Sneezing Verified 01/04/20 16:26 No Known Drug Allergies Allergy Other Verified 01/04/20 16:26 Home Meds: Home Meds Tiotropium [Spiriva Handihaler] 18 mcg IH DAILY 02/18/18 [History] Cholecalciferol (Vitamin D3) [Vitamin D3] 3,000 unit PO DAILY 03/02/18 [History] Fluticasone/Vilanterol [Breo Ellipta 200-25 MCG Inhalation Kit] 1 puff INH DAILY 03/02/18 [History] Rosuvastatin [Crestor] 20 mg PO DAILY 09/15/18 [History] Clopidogrel [Plavix] 75 mg PO DAILY 08/11/19 [History] Rivaroxaban [Xarelto] 20 mg PO BEDTIME 08/11/19 [History] Albuterol Sulfate [Albuterol Sulfate Hfa] 2 puff IH Q4HR PRN 08/22/19 [History] guaiFENesin [Mucinex] 600 mg PO BID PRN 08/22/19 [History] Calcium Carbonate 600 mg PO BIDMEALS 12/20/19 [History] Hydroxychloroquine [Plaquenil] 200 mg PO BID 12/20/19 [History] Hydroxychloroquine [Plaquenil] 200 mg PO SUMOWEFR 12/20/19 [History] Nitroglycerin 0.4 mg SL ASDIRECTED PRN 12/20/19 [History] [place]-3/DHA/Epa/Fish Oil [Fish Oil 500 MG Softgel] 1 tab PO DAILY 12/20/19 [History] Digoxin 250 mcg PO DAILY #30 tablet 12/24/19 [Rx] Albuterol [Proventil Neb Soln] 2.5 mg .XX Q4HR #30 neb 01/04/20 [Rx] Doxycycline [Vibra-Tabs] 100 mg PO Q12HR #20 tab 01/04/20 [Rx] Furosemide 20 mg PO DAILY 01/04/20 [History] Metoprolol Succinate [Toprol XL 50mg] 100 mg PO DAILY 01/04/20 [History] predniSONE [Prednisone] 60 mg PO Q6HR #15 tablet 01/04/20 [Rx] Past Medical History - Past Health History Medical/Surgical History: Denies Medical/Surgical History Cardiovascular History: Reports: High Cholesterol Respiratory History: Reports: COPD Musculoskeletal History: Reports: Other (See Below) Other Musculoskeletal History: right hip septic arthritis Psychiatric History: Reports: Other (See Below) Other Psychiatric History: substance abuse - Past Surgical History HEENT Surgical History: Reports: Adenoidectomy, Tonsillectomy GI Surgical History: Reports: Other (See Below) Other GI Surgeries/Procedures: ventral hernia Female Surgical History: Reports: Section, Hysterectomy Musculoskeletal Surgical History: Reports: Other (See Below) Other Musculoskeletal Surgeries/Procedures:: hip surgery 2018 Social & Family History - Caffeine Use Caffeine Use: Reports: Coffee ED ROS GENERAL - Review of Systems Review Of Systems: Comprehensive ROS is negative, except as noted in HPI. ED EXAM, GENERAL - Physical Exam Exam: See Below Free Text/Narrative:: This patient has a very obvious barrel-shaped chest. She can only speak in about 4-5 word sentences and appears in mild distress. Exam Limited By: No Limitations General Appearance: Alert, WD/WN, Mild Distress Eye Exam: Bilateral Eye: EOMI, PERRL Ears: Normal External Exam, Normal TMs Nose: Normal Inspection Throat/Mouth: No: Normal Inspection (Mucosa is very dry otherwise unremarkable) Head: Atraumatic, Normocephalic Neck: Normal Inspection, Supple, Non-Tender Respiratory/Chest: Respiratory Distress (Mild distress), Decreased Breath Sounds (Throughout and distant as well. ), Accessory Muscle Use (Minimal). No: Wheezing (Very faint expiratory wheezing although there is little to no air movement.), Retractions Cardiovascular: Normal Peripheral Pulses, Tachycardia, Irregularly Irregular GI/Abdominal: Normal Bowel Sounds, Soft (Female) Exam: Deferred Rectal (Female) Exam: Deferred Back Exam: Normal Inspection Extremities: Normal Capillary Refill, Pedal Edema (He has 2+ pitting edema on bilateral ankles that is equal. And she also has edema up to her patella.) Neurological: Alert, Oriented, Normal Cognition, No Motor/Sensory Deficits Psychiatric: Normal Mood, Flat Affect Skin Exam: Warm, Dry, Intact EKG INTERPRETATION EKG Date: 01/04/20 Time: 16:55 Rhythm: A-Fib Rate (Beats/Min): 118 Lind: Normal P-Wave: Present QRS: Normal ST-T: Normal QT: Normal Course - Vital Signs Last Recorded V/S: Last Vital Signs Temp 37.7 C 01/04/20 18:19 Pulse 103 H 01/04/20 18:19 Resp 19 01/04/20 18:19 BP 98/67 01/04/20 18:19 Pulse Ox 99 01/04/20 18:19 - Orders/Labs/Meds Orders: Active Orders 24 hr Category Date Time Status EKG Documentation Completion [RC] STAT Care 01/04/20 16:28 Active RT Aerosol Therapy [RC] ASDIRECTED Care 01/04/20 16:29 Active RT Aerosol Therapy [RC] ASDIRECTED Care 01/04/20 18:56 Ordered CULTURE BLOOD [BC] Stat Lab 01/04/20 16:51 Received CULTURE BLOOD [BC] Stat Lab 01/04/20 16:56 Received Sodium Chloride 0.9% [Saline Flush] Med 01/04/20 16:29 Active 10 ml FLUSH ASDIRECTED PRN Blood Culture x2 Reflex Set [OM.PC] Stat Oth 01/04/20 16:28 Ordered Peripheral IV Insertion Adult [OM.PC] Stat Oth 01/04/20 16:28 Ordered Medication Orders Sodium Chloride (Saline Flush) 10 ml FLUSH ASDIRECTED PRN PRN Reason: Keep Vein Open Labs: Laboratory Tests 01/04/20 01/04/20 01/04/20 Range/Units 16:51 16:51 16:51 WBC 10.6 H (4.0-10.0) x10^3/uL RBC 4.91 (4.00-5.50) x10^6/uL Hgb 13.8 (12.0-16.0) g/dL Hct 43.6 (33.0-47.0) % MCV 88.8 (78.0-93.0) fL MCH 28.1 (26.0-32.0) pg MCHC 31.7 L (32.0-36.0) g/dL RDW Coeff of Seferino 15.2 H (10.0-15.0) % Plt Count 308 (130-400) x10^3/uL Neut % (Auto) 82.9 H (50.0-80.0) % Lymph % (Auto) 8.7 L (25.0-50.0) % Tripp % (Auto) 7.7 (2.0-11.0) % Eos % (Auto) 0.2 (0.0-4.0) % Baso % (Auto) 0.5 (0.2-1.2) % PT 12.7 H (9.5-12.3) SEC INR 1.2 L (2.0-3.5) APTT 29.9 (25.6-32.8) SEC Sodium 139 (136-145) mmol/L Potassium 4.1 (3.5-5.1) mmol/L Chloride 101 (98-107) mmol/L Carbon Dioxide 29 (21-32) mmol/L Anion Gap 13.1 (10-20) mmol/L BUN 10 (7-18) mg/dL Creatinine 1.0 (0.55-1.02) mg/dL Est Cr Clr Drug Dosing TNP Estimated GFR (MDRD) 55 Glucose 95 (74-106) mg/dL Lactic Acid (0.4-2.0) mmol/L Calcium 8.3 L (8.5-10.1) mg/dL Corrected Calcium 9.34 (8.5-10.1) mg/dL Total Bilirubin 0.6 (0.2-1.0) mg/dL AST 16 (15-37) U/L ALT 19 (14-59) U/L Alkaline Phosphatase 79 (46-116) U/L Troponin I < 0.017 (<=0.056) ng/mL C-Reactive Protein 7.1 H (<=0.9) mg/dL NT-Pro-B Natriuret Pep 2181 H (<=125) pg/mL Total Protein 6.6 (6.4-8.2) g/dL Albumin 2.7 L (3.4-5.0) g/dL Globulin 3.9 Albumin/Globulin Ratio 0.69 Urine Color (YELLOW) Urine Appearance (CLEAR) Urine pH (5.0-8.0) Ur Specific [place] Urine Protein (NEGATIVE) mg/dL Urine Glucose (UA) (NEGATIVE) mg/dL Urine Ketones (NEGATIVE) mg/dL Urine Occult Blood (NEGATIVE) Urine Nitrite (NEGATIVE) Urine Bilirubin (NEGATIVE) Urine Urobilinogen (0.2) EU/dL Ur Leukocyte Esterase (NEGATIVE) Digoxin (0.90-2.00) ng/mL SARS-CoV-2 RNA (RT-PCR) (NEGATIVE) 01/04/20 01/04/20 01/04/20 Range/Units 16:51 16:51 17:05 WBC (4.0-10.0) x10^3/uL RBC (4.00-5.50) x10^6/uL Hgb (12.0-16.0) g/dL Hct (33.0-47.0) % MCV (78.0-93.0) fL MCH (26.0-32.0) pg MCHC (32.0-36.0) g/dL RDW Coeff of Seferino (10.0-15.0) % Plt Count (130-400) x10^3/uL Neut % (Auto) (50.0-80.0) % Lymph % (Auto) (25.0-50.0) % Tripp % (Auto) (2.0-11.0) % Eos % (Auto) (0.0-4.0) % Baso % (Auto) (0.2-1.2) % PT (9.5-12.3) SEC INR (2.0-3.5) APTT (25.6-32.8) SEC Sodium (136-145) mmol/L Potassium (3.5-5.1) mmol/L Chloride (98-107) mmol/L Carbon Dioxide (21-32) mmol/L Anion Gap (10-20) mmol/L BUN (7-18) mg/dL Creatinine (0.55-1.02) mg/dL Est Cr Clr Drug Dosing Estimated GFR (MDRD) Glucose (74-106) mg/dL Lactic Acid 1.6 (0.4-2.0) mmol/L Calcium (8.5-10.1) mg/dL Corrected Calcium (8.5-10.1) mg/dL Total Bilirubin (0.2-1.0) mg/dL AST (15-37) U/L ALT (14-59) U/L Alkaline Phosphatase (46-116) U/L Troponin I (<=0.056) ng/mL C-Reactive Protein (<=0.9) mg/dL NT-Pro-B Natriuret Pep (<=125) pg/mL Total Protein (6.4-8.2) g/dL Albumin (3.4-5.0) g/dL Globulin Albumin/Globulin Ratio Urine Color (YELLOW) Urine Appearance (CLEAR) Urine pH (5.0-8.0) Ur Specific [place] Urine Protein (NEGATIVE) mg/dL Urine Glucose (UA) (NEGATIVE) mg/dL Urine Ketones (NEGATIVE) mg/dL Urine Occult Blood (NEGATIVE) Urine Nitrite (NEGATIVE) Urine Bilirubin (NEGATIVE) Urine Urobilinogen (0.2) EU/dL Ur Leukocyte Esterase (NEGATIVE) Digoxin 2.99 H* (0.90-2.00) ng/mL SARS-CoV-2 RNA (RT-PCR) Negative (NEGATIVE) 01/04/20 Range/Units 18:31 WBC (4.0-10.0) x10^3/uL RBC (4.00-5.50) x10^6/uL Hgb (12.0-16.0) g/dL Hct (33.0-47.0) % MCV (78.0-93.0) fL MCH (26.0-32.0) pg MCHC (32.0-36.0) g/dL RDW Coeff of Seferino (10.0-15.0) % Plt Count (130-400) x10^3/uL Neut % (Auto) (50.0-80.0) % Lymph % (Auto) (25.0-50.0) % Tripp % (Auto) (2.0-11.0) % Eos % (Auto) (0.0-4.0) % Baso % (Auto) (0.2-1.2) % PT (9.5-12.3) SEC INR (2.0-3.5) APTT (25.6-32.8) SEC Sodium (136-145) mmol/L Potassium (3.5-5.1) mmol/L Chloride (98-107) mmol/L Carbon Dioxide (21-32) mmol/L Anion Gap (10-20) mmol/L BUN (7-18) mg/dL Creatinine (0.55-1.02) mg/dL Est Cr Clr Drug Dosing Estimated GFR (MDRD) Glucose (74-106) mg/dL Lactic Acid (0.4-2.0) mmol/L Calcium (8.5-10.1) mg/dL Corrected Calcium (8.5-10.1) mg/dL Total Bilirubin (0.2-1.0) mg/dL AST (15-37) U/L ALT (14-59) U/L Alkaline Phosphatase (46-116) U/L Troponin I (<=0.056) ng/mL C-Reactive Protein (<=0.9) mg/dL NT-Pro-B Natriuret Pep (<=125) pg/mL Total Protein (6.4-8.2) g/dL Albumin (3.4-5.0) g/dL Globulin Albumin/Globulin Ratio Urine Color Yellow (YELLOW) Urine Appearance Clear (CLEAR) Urine pH 5.0 (5.0-8.0) Ur Specific [place] 1.020 Urine Protein Negative (NEGATIVE) mg/dL Urine Glucose (UA) Negative (NEGATIVE) mg/dL Urine Ketones Negative (NEGATIVE) mg/dL Urine Occult Blood Negative (NEGATIVE) Urine Nitrite Negative (NEGATIVE) Urine Bilirubin Negative (NEGATIVE) Urine Urobilinogen 0.2 (0.2) EU/dL Ur Leukocyte Esterase Negative (NEGATIVE) Digoxin (0.90-2.00) ng/mL SARS-CoV-2 RNA (RT-PCR) (NEGATIVE) Meds: Medications Generic Name Dose Route Start Last Admin Trade Name Freq PRN Reason Stop Dose Admin Sodium Chloride 10 ml 01/04/20 16:29 Saline Flush FLUSH ASDIRECTED PRN Keep Vein Open Discontinued Medications Generic Name Dose Route Start Last Admin Trade Name Freq PRN Reason Stop Dose Admin Albuterol/Ipratropium 3 ml 01/04/20 16:29 01/04/20 17:32 Duoneb 3.0-0.5 Mg/3 Ml NEB 01/04/20 16:30 3 ml ONETIME ONE Administration Aspirin 324 mg 01/04/20 17:16 01/04/20 17:32 Aspirin PO 01/04/20 17:17 324 mg ONETIME ONE Administration Budesonide 1 mg 01/04/20 18:55 Pulmicort NEB 01/04/20 18:56 ONETIME ONE Doxycycline Hyclate 100 mg 01/04/20 18:56 Vibramycin PO 01/04/20 18:57 ONETIME ONE Methylprednisolone Sodium Succinate 125 mg 01/04/20 18:55 Solu-Medrol IVPUSH 01/04/20 18:56 ONETIME ONE - Radiology Interpretation Free Text/Narrative:: Chest x-ray per radiology shows findings suggested mild fluid retention in the chest. She also has slight tenting of the left hemidiaphragm that is not seen previously. Noncontrast chest CT is recommended to better evaluate this findings. CT of the chest per radiology shows changes of fluid retention in the chest, including mild to moderate pericardial effusion and small bilateral pleural effusions. Decreased size of irregular parenchymal nodules in the right upper and left lobes. - Re-Assessments/Exams Free Text/Narrative Re-Assessment/Exam: 01/04/20 19:27 The patient was given a DuoNeb nebulizer with quite improvement of her shortness of breath. She was able to speak in full sentences. Blood cultures x2 were drawn. Her EKG is unremarkable. Troponin is negative. Heart rate was well controlled after we got her shortness of breath improved. She was hanging right around 90-100 when she was at rest. I do not feel that she needs any change in her Beta radha therapy and her tachy on arrival was related to her COPD exacerbation. His level is 2.99 which is above the threshold of 2.0. Although this is most likely due to the fact that her digoxin was drawn after she had already taken her dose for the day and this should be done on a fasting schedule. UA negative Her weight today is down 0.6lbs from the clinic 2 day ago. She is 62.2 today and 62.8 in the clinic 2 days ago. proBNP is down to 2000 which is the lowest that I can see most recent past on her laboratory evaluation from the emergency department. We will discharge her home at this time as she has improved after the nebulizers. We will give her a milligram of budesonide as well. 125 of Solu- Medrol IV push. I will also place her on doxycycline as she had a fever and she does meet the gold criteria for initiation of antibiotic therapy for COPD exacerbation. Talk with the patient at length I think that is important with a person with such severe COPD is herself to have a rescue nebulizer at home as well as backup steroids and long-acting beta agonist as well as antimuscarinics such as ipratropium and her COPD gets so bad the MDIs do not work as well. Prescription for nebulizer and rescue albuterol at this time. She can discuss with her primary care this home therapy to shorten and maybe even prevent COPD exacerbations. Place her on a course of doxycycline for the next 10 days. I will have her follow-up in the clinic on Thursday to recheck her digoxin level as doxycycline has a 10% chance of minimally increasing the digoxin level in the body. And is comfortable with this plan and her questions are answered. 01/04/20 19:32 01/04/20 19:44 Departure - Departure Time of Disposition: 19:08 Disposition: Home, Self-Care 01 Clinical Impression: COPD with exacerbation, Pericardial effusion, Pleural effusion, bilateral Congestive heart failure Qualifiers: Heart failure type: unspecified Heart failure chronicity: acute on chronic Qualified Code(s): I50.9 - Heart failure, unspecified - Discharge Information Instructions: Chronic Obstructive Pulmonary Disease Exacerbation, [id number], Heart Failure, Self Care, [id number] Referrals: PCP,None [Primary Care Provider] - Forms: ED Department Discharge Additional Instructions: Continue with the lasix at 40mg as previous. Prednisone 60mg a day for the next 5 days, RX to Pharmacy electronically. Doxycycline, 1 tablet twice daily for the next 10 days. RX to Pharmacy. Continue with previous meds otherwise. I will prescribe a nebulizer for you as well for rescue nebulizer and when you see your PCP I would consider having Budesonide and Aformotorol available at home for times of exacerbations to replace your MDI Steroids and Long acting Broncho-dilator because how bad your COPD is when you have exacerbations you might not get the full effect of the MDI treatments at home. Albuterol nebulizer, 1 ampule every 4 hrs as needed for rescue inhaler. RX to the pharmacy. Take your Digoxin tomorrow as planned. See Dr. Enrique in the clinic on thursday have Dig level re-drawn prior to you taking it on thursday. Call the clinic tomorrow to get this set up. Return to the ED if new or worsening symptoms. Try to get into the habit of weighing yourself daily to get an idea of your fluid status amount on your body so we can keep better track of it. Sepsis Event Note (ED) - Evaluation Sepsis Screening Result: No Definite Risk - Focused Exam Vital Signs: Vital Signs Temp Pulse Resp BP Pulse Ox Pulse Ox 01/04/20 18:19 37.7 C 103 H 19 98/67 99 01/04/20 17:42 37.7 C 98 19 108/67 99 01/04/20 16:10 38.1 C 113 H 20 115/74 97 01/04/20 16:02 98 - My Orders Last 24 Hours: My Active Orders 01/04/20 16:28 EKG Documentation Completion [RC] STAT Blood Culture x2 Reflex Set [OM.PC] Stat Peripheral IV Insertion Adult [OM.PC] Stat 01/04/20 16:29 RT Aerosol Therapy [RC] ASDIRECTED Sodium Chloride 0.9% [Saline Flush] 10 ml FLUSH ASDIRECTED PRN 01/04/20 16:51 CULTURE BLOOD [BC] Stat 01/04/20 16:56 CULTURE BLOOD [BC] Stat 01/04/20 18:56 RT Aerosol Therapy [RC] ASDIRECTED - Assessment/Plan Last 24 Hours: My Active Orders 01/04/20 16:28 EKG Documentation Completion [RC] STAT Blood Culture x2 Reflex Set [OM.PC] Stat Peripheral IV Insertion Adult [OM.PC] Stat 01/04/20 16:29 RT Aerosol Therapy [RC] ASDIRECTED Sodium Chloride 0.9% [Saline Flush] 10 ml FLUSH ASDIRECTED PRN 01/04/20 16:51 CULTURE BLOOD [BC] Stat 01/04/20 16:56 CULTURE BLOOD [BC] Stat 01/04/20 18:56 RT Aerosol Therapy [RC] ASDIRECTED Assessment:: COPD with mild exacerbation GOLD criteria=anti-biotic therapy. Had a fever as well in the ED> CHF acute on chronic stable. Supra-therapeutic Dig level. THis is most likely because it was checked after you took your DIg for the day today. Will recheck thursday. Gonzalo has small increase in Dig levels. Pericardial effusion Bilateral small pleural effusions. Plan: Continue with the lasix at 40mg as previous. Prednisone 60mg a day for the next 5 days, RX to Pharmacy electronically. Doxycycline, 1 tablet twice daily for the next 10 days. RX to Pharmacy. Continue with previous meds otherwise. I will prescribe a nebulizer for you as well for rescue nebulizer and when you see your PCP I would consider having Budesonide and Aformotorol available at home for times of exacerbations to replace your MDI Steroids and Long acting Broncho-dilator because how bad your COPD is when you have exacerbations you might not get the full effect of the MDI treatments at home. Albuterol nebulizer, 1 ampule every 4 hrs as needed for rescue inhaler. RX to the pharmacy. Take your Digoxin tomorrow as planned. See Dr. Enrique in the clinic on thursday have Dig level re-drawn prior to you taking it on thursday. Call the clinic tomorrow to get this set up. Return to the ED if new or worsening symptoms. Try to get into the habit of weighing yourself daily to get an idea of your fluid status amount on your body so we can keep better track of it. Please send a copy of my note to Dr. Yony Enrique at the [facility].
[2020-01-04 17:19] LABS: PTT,PARTIAL THROMBOPLSTIN TIME 29.9 SEC (25.6-32.8)
[2020-01-04] MEDS: Aspirin 81 MG Tab.Chew PO ONE (17:32)
[2020-01-04] MEDS: Albuterol/Ipratropium 3.0-0.5 MG/3 ML Neb Soln NEB ONE (17:32)
[2020-01-04 17:50] LABS: ANION GAP 13.1 mmol/L (10-20); CHLORIDE,CL 101 mmol/L (98-107); SODIUM,NA 139 mmol/L (136-145)
--- NOTE | 2020-01-04 18:45 | CT ---
[id number] CT/CT Chest WO IV EXAM: CT Chest WO IV CLINICAL DATA: NEW FINDINGS ON CHEST X-RAY TENTING AND EFFUSIONS. COMPARISON: Chest CT from June 24, 2019. FINDINGS: LUNGS: 11 x 13 x 8 mm irregular nodular opacity in the right upper lobe resulting in tenting of the major fissure compared to 22 x 17 x 14 mm previously. Irregular parenchymal nodularity in the left upper lobe (series 6 image 51) measuring 18 x 11 x 14 mm compared to 26 x 13 x 14 mm previously. Stable area of linear parenchymal opacification in the right lower lobe. No new areas of abnormal parenchymal opacification. Findings are superimposed on a background of advanced apical predominant parenchymal emphysema. Small bilateral pleural effusions HEART AND GREAT VESSELS: Small to moderate-sized pericardial effusion not seen previously. Otherwise unchanged. MEDIASTINUM AND LYMPHATICS: No mediastinal or hilar lymphadenopathy. UPPER ABDOMINAL ORGANS: Unchanged from the prior examination. BONES: Unchanged from the prior examination. IMPRESSION: Changes of fluid retention in the chest, including mild to moderate pericardial effusion and small bilateral pleural effusions. Decreased size of irregular parenchymal nodules in the right upper and left lower lobes. No other significant change. Avery Roy MD 01/04/20 [id number] Thank you for allowing us to participate in the care of your patient.
[2020-01-04] MEDS: Doxycycline 100 MG Cap PO ONE (19:12)
[2020-01-04] MEDS: methylPREDNISolone Sodium Succinate 125 MG/2 ML SDV IVPUSH ONE (19:14)
[2020-01-04] MEDS: Budesonide 0.5 MG/2 ML Neb Susp NEB ONE (19:14)
== END 2020-01-04 20:05 | disposition home or self-care (01) ==
LOC: VM.ED 16:02
DX: I50.9 Heart failure, unspecified (principal); J44.1 Chronic obstructive pulmonary disease with (acute) exacerbation; J90 Pleural effusion, not elsewhere classified; I31.3 Pericardial effusion (noninflammatory); E78.00 Pure hypercholesterolemia, unspecified; Z20.828 Contact with and (suspected) exposure to other viral communicable diseases; Z91.048 Other nonmedicinal substance allergy status; Z79.899 Other long term (current) drug therapy; Z79.01 Long term (current) use of anticoagulants
CPT/HCPCS: 36415; 71046; 71250; 80053; 80162; 81003; 83605; 83880; 84484; 85025; 85610; 85730; 86140; 87040; 93005; 93010; 94640; 96374; 99284; 99285; A9270; J2930; U0002; J7620-GY

== ENCOUNTER 2020-06-19 17:24 | Emergency (ER) | payer MEDICARE, OTHER ==
[2020-06-19 18:26] LABS: CHLORIDE,CL 100 mmol/L (98-107); SODIUM,NA 141 mmol/L (136-145)
[2020-06-19 18:28] LABS: ANION GAP 9.9 mmol/L (10-20)
[2020-06-19] MEDS ORDERED: Iopamidol 612 MG/ML 100 ML Bottle IVPUSH ONE ×2 (18:30→20:17)
--- NOTE | 2020-06-19 19:07 | EDM.PDOC ---
ED HPI GENERAL MEDICAL PROBLEM - General Chief Complaint: Abdominal Pain Stated Complaint: STOMACH PAIN Time Seen by Provider: 06/19/20 17:40 Source of Information: Reports: Patient, RN, RN Notes Reviewed History Limitations: Reports: No Limitations - History of Present Illness INITIAL COMMENTS - FREE TEXT/NARRATIVE: Pt is a 70 year old female who presents to the ER with c/o RLQ pain. Patient states the pain began about 1-2pm today. She states she has vomited a few times today. Patient states she had pain similar to this about 3 weeks ago and it went away. Patient states she was concerned that she may have a UTI. Patient admits to N/V. Denies diarrhea or constipation, denies urinary sx, denies fever or chills, denies chest pain. Admits to SOB, but this is ongoing for her and states it is no worse than usual. Patient is on 2L O2 per NC at all times, hx COPD, CHF. Patient states she does still have her appendix. Onset: Today Right Lower Abdomen Pain Score (Numeric/FACES): 7 - Related Data Allergies Allergy/AdvReac Type Severity Reaction Status Date / Time cat dander Allergy Sneezing Verified 06/19/20 17:36 No Known Drug Allergies Allergy Other Verified 06/19/20 17:36 Home Meds: Home Meds Tiotropium [Spiriva Handihaler] 18 mcg IH DAILY 02/18/18 [History] Cholecalciferol (Vitamin D3) [Vitamin D3] 3,000 unit PO DAILY 03/02/18 [History] Fluticasone/Vilanterol [Breo Ellipta 200-25 MCG Inhalation Kit] 1 puff INH DAILY 03/02/18 [History] Rosuvastatin [Crestor] 20 mg PO DAILY 09/15/18 [History] Clopidogrel [Plavix] 75 mg PO DAILY 08/11/19 [History] Rivaroxaban [Xarelto] 20 mg PO BEDTIME 08/11/19 [History] Albuterol Sulfate [Albuterol Sulfate Hfa] 2 puff IH Q4HR PRN 08/22/19 [History] guaiFENesin [Mucinex] 600 mg PO BID PRN 08/22/19 [History] Calcium Carbonate 600 mg PO BIDMEALS 12/20/19 [History] Hydroxychloroquine [Plaquenil] 200 mg PO BID 12/20/19 [History] Hydroxychloroquine [Plaquenil] 200 mg PO SUMOWEFR 12/20/19 [History] Nitroglycerin 0.4 mg SL ASDIRECTED PRN 12/20/19 [History] [place]-3/DHA/Epa/Fish Oil [Fish Oil 500 MG Softgel] 1 tab PO DAILY 12/20/19 [History] Digoxin 250 mcg PO DAILY #30 tablet 12/24/19 [Rx] Albuterol [Proventil Neb Soln] 2.5 mg .XX Q4HR #30 neb 01/04/20 [Rx] Doxycycline [Vibra-Tabs] 100 mg PO Q12HR #20 tab 01/04/20 [Rx] Furosemide 20 mg PO DAILY 01/04/20 [History] Metoprolol Succinate [Toprol XL 50mg] 100 mg PO DAILY 01/04/20 [History] predniSONE [Prednisone] 60 mg PO Q6HR #15 tablet 01/04/20 [Rx] Past Medical History - Past Health History Medical/Surgical History: Denies Medical/Surgical History Cardiovascular History: Reports: High Cholesterol Respiratory History: Reports: COPD Musculoskeletal History: Reports: Other (See Below) Other Musculoskeletal History: right hip septic arthritis Psychiatric History: Reports: Other (See Below) Other Psychiatric History: substance abuse - Past Surgical History HEENT Surgical History: Reports: Adenoidectomy, Tonsillectomy GI Surgical History: Reports: Other (See Below) Other GI Surgeries/Procedures: ventral hernia Female Surgical History: Reports: Section, Hysterectomy Musculoskeletal Surgical History: Reports: Other (See Below) Other Musculoskeletal Surgeries/Procedures:: hip surgery 2018 Social & Family History - Tobacco Use Tobacco Use Status *Q: Current Status Unknown - Caffeine Use Caffeine Use: Reports: Coffee ED ROS GENERAL - Review of Systems Review Of Systems: Comprehensive ROS is negative, except as noted in HPI. ED EXAM, GI/ABD - Physical Exam Exam: See Below Exam Limited By: No Limitations General Appearance: Alert, WD/WN, No Apparent Distress Eyes: Bilateral: Normal Appearance, EOMI Ears: Normal External Exam, Hearing Grossly Normal Nose: Normal Inspection Throat/Mouth: Normal Inspection, Normal Voice, No Airway Compromise Head: Atraumatic, Normocephalic Neck: Normal Inspection, Supple, Non-Tender, Full Range of Motion Respiratory/Chest: No Respiratory Distress, No Accessory Muscle Use, Chest Non- Tender, Decreased Breath Sounds, Crackles (throughout), Other (on 2L O2 at all times) Cardiovascular: Normal Peripheral Pulses, Regular Rate, Rhythm, No Edema, No Gallop, No JVD, No Murmur, No Rub GI/Abdominal Exam: Normal Bowel Sounds, Soft, Tender (RLQ) (Female) Exam: Deferred Rectal (Female) Exam: Deferred Back Exam: Normal Inspection, Full Range of Motion, NT Extremities: Normal Inspection, Normal Range of Motion, Non-Tender, Normal Capillary Refill, No Pedal Edema Neurological: Alert, Oriented, CN II-XII Intact, Normal Cognition, Normal Gait, Normal Reflexes, No Motor/Sensory Deficits Psychiatric: Normal Affect, Normal Mood Skin Exam: Warm, Dry Lymphatic: No Adenopathy Course - Vital Signs Last Recorded V/S: Last Vital Signs Temp 97.2 F 06/19/20 17:28 Pulse 79 06/19/20 17:28 Resp 28 H 06/19/20 17:28 BP 135/53 L 06/19/20 17:28 Pulse Ox 98 06/19/20 17:28 - Orders/Labs/Meds Orders: Active Orders 24 hr Category Date Time Status CULTURE BLOOD [BC] Stat Lab 06/19/20 17:55 Received CULTURE BLOOD [BC] Stat Lab 06/19/20 18:00 Results Blood Culture x2 Reflex Set [OM.PC] Stat Oth 06/19/20 17:45 Ordered Labs: Laboratory Tests 06/19/20 06/19/20 06/19/20 Range/Units 17:55 17:55 17:55 WBC 6.9 (4.0-10.0) x10^3/uL RBC 4.76 (4.00-5.50) x10^6/uL Hgb 13.7 (12.0-16.0) g/dL Hct 43.3 (33.0-47.0) % MCV 91.0 (78.0-93.0) fL MCH 28.8 (26.0-32.0) pg MCHC 31.6 L (32.0-36.0) g/dL RDW Coeff of Seferino 14.2 (10.0-15.0) % Plt Count 232 D (130-400) x10^3/uL Neut % (Auto) 79.4 (50.0-80.0) % Lymph % (Auto) 12.2 L (25.0-50.0) % [place] % (Auto) 6.4 (2.0-11.0) % Eos % (Auto) 1.6 (0.0-4.0) % Baso % (Auto) 0.4 (0.2-1.2) % Sodium 141 (136-145) mmol/L Potassium 3.9 (3.5-5.1) mmol/L Chloride 100 (98-107) mmol/L Carbon Dioxide 35 H (21-32) mmol/L Anion Gap 9.9 L (10-20) mmol/L BUN 13 (7-18) mg/dL Creatinine 0.8 (0.55-1.02) mg/dL Est Cr Clr Drug Dosing TNP Estimated GFR (MDRD) > 60 Glucose 89 (74-106) mg/dL Lactic Acid 1.3 (0.4-2.0) mmol/L Calcium 9.1 (8.5-10.1) mg/dL Corrected Calcium 9.58 (8.5-10.1) mg/dL Total Bilirubin 0.5 (0.2-1.0) mg/dL AST 22 (15-37) U/L ALT 22 (14-59) U/L Alkaline Phosphatase 96 (46-116) U/L Total Protein 7.4 (6.4-8.2) g/dL Albumin 3.4 (3.4-5.0) g/dL Globulin 4.0 Albumin/Globulin Ratio 0.85 Urine Color (YELLOW) Urine Appearance (CLEAR) Urine pH (5.0-8.0) Ur Specific [place] Urine Protein (NEGATIVE) mg/dL Urine Glucose (UA) (NEGATIVE) mg/dL Urine Ketones (NEGATIVE) mg/dL Urine Occult Blood (NEGATIVE) Urine Nitrite (NEGATIVE) Urine Bilirubin (NEGATIVE) Urine Urobilinogen (0.2) EU/dL Ur Leukocyte Esterase (NEGATIVE) U Hyaline Cast (Auto) Urine RBC (NOT SEEN) /HPF Urine WBC (NOT SEEN) /HPF Ur Squamous Epith Cells (NEGATIVE) /HPF Urine Bacteria (NEGATIVE) /HPF Urine Mucus (NEGATIVE) /LPF SARS CoV-2 RNA Rapid MELISSA (NEGATIVE) 06/19/20 06/19/20 Range/Units 18:07 20:55 WBC (4.0-10.0) x10^3/uL RBC (4.00-5.50) x10^6/uL Hgb (12.0-16.0) g/dL Hct (33.0-47.0) % MCV (78.0-93.0) fL MCH (26.0-32.0) pg MCHC (32.0-36.0) g/dL RDW Coeff of Seferino (10.0-15.0) % Plt Count (130-400) x10^3/uL Neut % (Auto) (50.0-80.0) % Lymph % (Auto) (25.0-50.0) % [place] % (Auto) (2.0-11.0) % Eos % (Auto) (0.0-4.0) % Baso % (Auto) (0.2-1.2) % Sodium (136-145) mmol/L Potassium (3.5-5.1) mmol/L Chloride (98-107) mmol/L Carbon Dioxide (21-32) mmol/L Anion Gap (10-20) mmol/L BUN (7-18) mg/dL Creatinine (0.55-1.02) mg/dL Est Cr Clr Drug Dosing Estimated GFR (MDRD) Glucose (74-106) mg/dL Lactic Acid (0.4-2.0) mmol/L Calcium (8.5-10.1) mg/dL Corrected Calcium (8.5-10.1) mg/dL Total Bilirubin (0.2-1.0) mg/dL AST (15-37) U/L ALT (14-59) U/L Alkaline Phosphatase (46-116) U/L Total Protein (6.4-8.2) g/dL Albumin (3.4-5.0) g/dL Globulin Albumin/Globulin Ratio Urine Color Yellow (YELLOW) Urine Appearance Clear (CLEAR) Urine pH 5.0 (5.0-8.0) Ur Specific [place] 1.020 Urine Protein Negative (NEGATIVE) mg/dL Urine Glucose (UA) Negative (NEGATIVE) mg/dL Urine Ketones Negative (NEGATIVE) mg/dL Urine Occult Blood Negative (NEGATIVE) Urine Nitrite Negative (NEGATIVE) Urine Bilirubin Negative (NEGATIVE) Urine Urobilinogen 0.2 (0.2) EU/dL Ur Leukocyte Esterase Negative (NEGATIVE) U Hyaline Cast (Auto) Few Urine RBC Not seen (NOT SEEN) /HPF Urine WBC 0-5 (NOT SEEN) /HPF Ur Squamous Epith Cells Few H (NEGATIVE) /HPF Urine Bacteria Few H (NEGATIVE) /HPF Urine Mucus Moderate H (NEGATIVE) /LPF SARS CoV-2 RNA Rapid MELISSA Negative (NEGATIVE) Meds: Medications Discontinued Medications Generic Name Dose Route Start Last Admin Trade Name Freq PRN Reason Stop Dose Admin Iopamidol 100 ml 06/19/20 18:30 06/19/20 20:21 Isovue-300 (61%) IVPUSH 06/19/20 18:31 100 ml ONETIME ONE Administration Iopamidol 100 ml 06/19/20 20:17 Isovue-300 (61%) IVPUSH 06/19/20 20:18 ONETIME ONE - Radiology Interpretation Free Text/Narrative:: CT Abdomen/Pelvis with contrast: Infrarenal abdominal aortic aneurysm right inguinal hernia containing mesenteric fat Mild small bowel distention The small bowel may be related to the internal hernia See rad report - Re-Assessments/Exams Free Text/Narrative Re-Assessment/Exam: 06/19/20 20:57 Discussed patient case with Dr. Sanchez who agreed to accept the patient for transfer to [facility]. Departure - Departure Time of Disposition: 21:18 Disposition: DC/Tfer to Acute Hospital 02 Condition: Fair Clinical Impression: AAA (abdominal aortic aneurysm) without rupture, Right inguinal hernia, SBO (small bowel obstruction) COPD (chronic obstructive pulmonary disease) Qualifiers: COPD type: COPD with acute exacerbation Qualified Code(s): J44.1 - Chronic obstructive pulmonary disease with (acute) exacerbation - Discharge Information *PRESCRIPTION DRUG MONITORING PROGRAM REVIEWED*: No *COPY OF PRESCRIPTION DRUG MONITORING REPORT IN PATIENT GAYLA: No Referrals: Kathya Enrique MD [Primary Care Provider] - Forms: ED Department Discharge, Interfacility Transfer [facility] Sepsis Event Note (ED) - Evaluation Sepsis Screening Result: No Definite Risk - Focused Exam Vital Signs: Vital Signs Temp Pulse Resp BP Pulse Ox 06/19/20 17:28 97.2 F 79 28 H 135/53 L 98 - My Orders Last 24 Hours: My Active Orders 06/19/20 17:45 Blood Culture x2 Reflex Set [OM.PC] Stat 06/19/20 17:55 CULTURE BLOOD [BC] Stat 06/19/20 18:00 CULTURE BLOOD [BC] Stat - Assessment/Plan Last 24 Hours: My Active Orders 06/19/20 17:45 Blood Culture x2 Reflex Set [OM.PC] Stat 06/19/20 17:55 CULTURE BLOOD [BC] Stat 06/19/20 18:00 CULTURE BLOOD [BC] Stat
--- NOTE | 2020-06-19 20:39 | CT ---
[id number] CT/CT Abdomen Pelvis W IV EXAM: CT Abdomen Pelvis W IV CLINICAL DATA: RIGHT LOWER QUADRANT PAIN COMPARISON: NO PREVIOUS SIMILAR EXAM IS AVAILABLE. FINDINGS: There is a 4.5 cm irregular infrarenal abdominal aortic aneurysm without rupture There is a right femoral hernia containing mesenteric fat There is a degree of small bowel distention Minimal nodularity of the left adrenal is likely an adenoma The liver and spleen show no focal abnormalities There is a small left hepatic cyst The kidneys and adrenals otherwise are unremarkable as is the pancreas. 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
[2020-06-19] MEDS ORDERED: Lactated Ringers 1,000 ML IV ONE (21:21)
== END 2020-06-19 22:05 | disposition short-term general hospital (02) ==
LOC: VM.ED 17:24
DX: I71.4 Abdominal aortic aneurysm, without rupture (principal); K40.30 Unilateral inguinal hernia, with obstruction, without gangrene, not specified as recurrent; J44.1 Chronic obstructive pulmonary disease with (acute) exacerbation; E78.00 Pure hypercholesterolemia, unspecified; Z20.828 Contact with and (suspected) exposure to other viral communicable diseases; Z91.09 Other allergy status, other than to drugs and biological substances; Z90.710 Acquired absence of both cervix and uterus; Z90.49 Acquired absence of other specified parts of digestive tract; Z79.899 Other long term (current) drug therapy
CPT/HCPCS: 36415; 74177; 80053; 81001; 83605; 85025; 87040; 99284; 99285-25; J7120; Q9967; U0002

== ENCOUNTER 2022-10-06 13:56 | Emergency (ER) | payer MEDICARE, OTHER ==
[2022-10-06] MEDS ORDERED: Diltiazem 50 MG/10 ML SDV ONE (14:07)
[2022-10-06] MEDS ORDERED: Sodium Chloride 0.9% 1,000 ML IV ONE (14:13)
[2022-10-06 14:40] LABS: PTT,PARTIAL THROMBOPLSTIN TIME 25.2 SEC (23.6-33.6)
[2022-10-06 14:56] LABS: CHLORIDE,CL 105 mmol/L (98-107); SODIUM,NA 145 mmol/L (136-145)
[2022-10-06 14:58] LABS: ANION GAP 10.2 mmol/L (5-15); ESTIMATED GFR 69 mL/min (>=60)
[2022-10-06] MEDS ORDERED: Amiodarone 150 MG/3 ML SDV IVPUSH ONE (15:02)
[2022-10-06] MEDS ORDERED: Norepinephrine Bit/D5W Premix 250 ML IV SCH (15:30)
[2022-10-06 15:52] LABS: CORONAVIRUS COVID-19 NAA NEGATIVE (NEGATIVE)
[2022-10-06 15:53] LABS: RESPIRATORY SYNCYTIAL VIR NAA NEGATIVE (NEGATIVE)
== END 2022-10-06 16:18 | disposition short-term general hospital (02) ==
LOC: VM.ED 13:56
DX: I48.91 Unspecified atrial fibrillation (principal); I95.9 Hypotension, unspecified; I25.10 Atherosclerotic heart disease of native coronary artery without angina pectoris; E78.00 Pure hypercholesterolemia, unspecified; J44.9 Chronic obstructive pulmonary disease, unspecified; Z72.0 Tobacco use; Z91.048 Other nonmedicinal substance allergy status; Z79.01 Long term (current) use of anticoagulants; Z79.899 Other long term (current) drug therapy; Z20.822 Contact with and (suspected) exposure to COVID-19
CPT/HCPCS: 0241U; 71045; 80053; 81001; 83735; 83880; 84484; 85025; 85610; 85730; 93005; 94760; 96365; 96366; 99285; J7030; 93010; 99284; J3490

== ENCOUNTER 2022-11-06 11:42 | Inpatient (IN) | payer MEDICARE, OTHER ==
[2022-11-06 12:59] LABS: ANION GAP 11.4 mmol/L (5-15); CHLORIDE,CL 100 mmol/L (98-107); ESTIMATED GFR 54 mL/min (>=60); SODIUM,NA 139 mmol/L (136-145)
[2022-11-06] MEDS ORDERED: fentaNYL 50 MCG/ML SDV IVPUSH ONE (14:43)
[2022-11-06 15:40] LABS: CORONAVIRUS COVID-19 NAA NEGATIVE (NEGATIVE); RESPIRATORY SYNCYTIAL VIR NAA NEGATIVE (NEGATIVE)
[2022-11-06] MEDS ORDERED: cefTRIAXone 1 GM Vial IVPUSH ONE (16:06)
[2022-11-06] MEDS ORDERED: Sodium Chloride 0.9% 1,000 ML IV ONE (16:48)
[2022-11-06] MEDS ORDERED: Ondansetron 4 MG/2 ML SDV IV PRN (18:12)
[2022-11-06] MEDS: oxyCODONE 5 MG Tab PO PRN (18:13)
[2022-11-06] MEDS ORDERED: Nitroglycerin 0.4 MG Tab.SL SL PRN (18:20)
[2022-11-06] MEDS: Ipratropium 0.02% 0.5 MG/2.5 ML Neb Soln NEB SCH (20:18)
[2022-11-06] MEDS: Rivaroxaban 10 MG Tab PO SCH (20:18)
[2022-11-06] MEDS: Arformoterol 15 MCG/2 ML Neb Soln INH SCH (20:18)
[2022-11-06] MEDS: Albuterol 0.083% 2.5 MG/3 ML Neb Soln INH SCH (20:18)
[2022-11-06] MEDS: Budesonide 0.5 MG/2 ML Neb Susp NEB SCH (20:18)
[2022-11-06] MEDS: LORazepam 0.5 MG Tab PO SCH (20:18)
[2022-11-06] MEDS ORDERED: Albuterol/Ipratropium 3.0-0.5 MG/3 ML Neb Soln NEB SCH (21:00)
[2022-11-07] MEDS: Acetaminophen 325 MG Tab PO PRN ×2 (04:18→08:41)
[2022-11-07] MEDS: Arformoterol 15 MCG/2 ML Neb Soln INH SCH ×2 (06:02→20:05)
[2022-11-07] MEDS: Albuterol 0.083% 2.5 MG/3 ML Neb Soln INH SCH ×2 (06:02→20:06)
[2022-11-07 07:24] LABS: ANION GAP 10.6 mmol/L (5-15)
[2022-11-07] MEDS: LORazepam 0.5 MG Tab PO SCH ×3 (08:23→20:05)
[2022-11-07] MEDS: Ipratropium 0.02% 0.5 MG/2.5 ML Neb Soln NEB SCH ×2 (08:24→20:06)
[2022-11-07] MEDS: Cholecalciferol (Vitamin D3) 25 MCG Tab PO SCH (08:37)
[2022-11-07] MEDS: predniSONE 5 MG Tab PO SCH (08:37)
[2022-11-07] MEDS: Rosuvastatin 20 MG Tab PO SCH (08:37)
[2022-11-07] MEDS: Sertraline 50 MG Tab PO SCH (08:39)
[2022-11-07] MEDS: Fluticasone Propionate Nasal Spray 9.9 ML BOTTLE NASBOTH SCH (08:39)
[2022-11-07] MEDS: Ferrous Sulfate 325 MG Tab PO SCH (08:39)
[2022-11-07] MEDS: Budesonide 0.5 MG/2 ML Neb Susp NEB SCH ×2 (08:43→20:06)
[2022-11-07] MEDS: Metoprolol Succinate 25 MG Tab.ER PO SCH (09:16)
[2022-11-07] MEDS: Ondansetron 4 MG Tab.DIS PO PRN ×2 (09:16→14:56)
[2022-11-07] MEDS ORDERED: Bisacodyl 10 MG Supp RECTAL PRN (10:05)
[2022-11-07] MEDS ORDERED: DOFETILIDE 250 MCG PO SCH (12:00)
[2022-11-07] MEDS ORDERED: ROFLUMILAST 500 MCG PO SCH (12:00)
[2022-11-07] MEDS: REVEFENACIN 175 MCG/3 ML INH SCH (14:40)
[2022-11-07] MEDS: Morphine 2 MG/ML SYRINGE IVPUSH PRN ×2 (14:56→19:39)
[2022-11-07] MEDS: Polyethylene Glycol 3350 Powder 17 GM Packet PO PRN (16:17)
[2022-11-07] MEDS: cefTRIAXone 1 GM Vial IVPUSH SCH (16:17)
[2022-11-07] MEDS: ROFLUMILAST 500 MCG PO SCH (16:22)
[2022-11-07] MEDS: oxyCODONE 5 MG Tab PO PRN (17:05)
[2022-11-07] MEDS: Hydroxychloroquine 200 MG Tab PO SCH (18:18)
[2022-11-07] MEDS: Rivaroxaban 10 MG Tab PO SCH (20:05)
[2022-11-07] MEDS: DOFETILIDE 250 MCG PO SCH (20:08)
[2022-11-08] MEDS: oxyCODONE 5 MG Tab PO PRN (02:27)
[2022-11-08] MEDS: Albuterol HFA 18 Gm Inhaler INH PRN (02:28)
[2022-11-08] MEDS: Morphine 2 MG/ML SYRINGE IVPUSH PRN (03:22)
[2022-11-08] MEDS: Albuterol 0.083% 2.5 MG/3 ML Neb Soln INH SCH (07:04)
[2022-11-08] MEDS: Arformoterol 15 MCG/2 ML Neb Soln INH SCH ×2 (07:04→20:31)
[2022-11-08] MEDS: Docusate Sodium 100 MG Cap PO PRN (08:32)
[2022-11-08] MEDS: Ferrous Sulfate 325 MG Tab PO SCH (08:32)
[2022-11-08] MEDS: Cholecalciferol (Vitamin D3) 25 MCG Tab PO SCH (08:32)
[2022-11-08] MEDS: Rosuvastatin 20 MG Tab PO SCH (08:32)
[2022-11-08] MEDS: Sertraline 50 MG Tab PO SCH (08:32)
[2022-11-08] MEDS: predniSONE 5 MG Tab PO SCH (08:33)
[2022-11-08] MEDS: Metoprolol Succinate 25 MG Tab.ER PO SCH (08:35)
[2022-11-08] MEDS: LORazepam 0.5 MG Tab PO SCH ×3 (08:36→20:31)
[2022-11-08] MEDS: cefTRIAXone 1 GM Vial IVPUSH SCH (08:43)
[2022-11-08] MEDS: Fluticasone Propionate Nasal Spray 9.9 ML BOTTLE NASBOTH SCH (08:46)
[2022-11-08] MEDS: ROFLUMILAST 500 MCG PO SCH (08:47)
[2022-11-08] MEDS: DOFETILIDE 250 MCG PO SCH ×2 (08:47→20:31)
[2022-11-08] MEDS: Budesonide 0.5 MG/2 ML Neb Susp NEB SCH ×2 (08:54→20:31)
[2022-11-08] MEDS: Ipratropium 0.02% 0.5 MG/2.5 ML Neb Soln NEB SCH (08:54)
[2022-11-08] MEDS: REVEFENACIN 175 MCG/3 ML INH SCH ×2 (13:07→13:55)
[2022-11-08] MEDS: Acetaminophen 325 MG Tab PO PRN (13:07)
[2022-11-08] MEDS: Rivaroxaban 10 MG Tab PO SCH (20:30)
[2022-11-08] MEDS: Albuterol/Ipratropium 3.0-0.5 MG/3 ML Neb Soln NEB SCH (20:31)
[2022-11-09] MEDS: Albuterol HFA 18 Gm Inhaler INH PRN (03:24)
[2022-11-09] MEDS: guaiFENesin 600 MG Tab.ER PO PRN (03:26)
[2022-11-09] MEDS: Acetaminophen 325 MG Tab PO PRN ×3 (06:47→21:02)
[2022-11-09] MEDS: Albuterol/Ipratropium 3.0-0.5 MG/3 ML Neb Soln NEB SCH ×2 (07:07→20:55)
[2022-11-09] MEDS: Arformoterol 15 MCG/2 ML Neb Soln INH SCH ×2 (07:13→20:55)
[2022-11-09] MEDS: Budesonide 0.5 MG/2 ML Neb Susp NEB SCH ×2 (08:27→20:55)
[2022-11-09] MEDS: REVEFENACIN 175 MCG/3 ML INH SCH (08:28)
[2022-11-09 08:31] LABS: ANION GAP 5.4 mmol/L (5-15)
[2022-11-09] MEDS: Docusate Sodium 100 MG Cap PO PRN (09:00)
[2022-11-09] MEDS: Cholecalciferol (Vitamin D3) 25 MCG Tab PO SCH (09:00)
[2022-11-09] MEDS: Ferrous Sulfate 325 MG Tab PO SCH (09:00)
[2022-11-09] MEDS: Metoprolol Succinate 25 MG Tab.ER PO SCH (09:01)
[2022-11-09] MEDS: LORazepam 0.5 MG Tab PO SCH ×3 (09:01→20:56)
[2022-11-09] MEDS: Fluticasone Propionate Nasal Spray 9.9 ML BOTTLE NASBOTH SCH (09:02)
[2022-11-09] MEDS: ROFLUMILAST 500 MCG PO SCH (09:03)
[2022-11-09] MEDS: DOFETILIDE 250 MCG PO SCH ×2 (09:03→20:55)
[2022-11-09] MEDS: cefTRIAXone 1 GM Vial IVPUSH SCH (09:03)
[2022-11-09] MEDS: Polyethylene Glycol 3350 Powder 17 GM Packet PO PRN (09:06)
[2022-11-09] MEDS ORDERED: Magnesium Sulfate/Water 4 GM in Premix Bag 1 BAG IV SCH (10:48)
[2022-11-09] MEDS: Hydroxychloroquine 200 MG Tab PO SCH (18:25)
[2022-11-09] MEDS: Rivaroxaban 10 MG Tab PO SCH (20:56)
[2022-11-10] MEDS: Acetaminophen 325 MG Tab PO PRN (05:34)
[2022-11-10] MEDS: Albuterol/Ipratropium 3.0-0.5 MG/3 ML Neb Soln NEB SCH ×3 (05:35→20:05)
[2022-11-10] MEDS: Arformoterol 15 MCG/2 ML Neb Soln INH SCH ×3 (05:35→20:05)
[2022-11-10] MEDS: Albuterol HFA 18 Gm Inhaler INH PRN ×2 (06:06→13:29)
[2022-11-10 07:47] LABS: ANION GAP 6.2 mmol/L (5-15)
[2022-11-10] MEDS: Ferrous Sulfate 325 MG Tab PO SCH (08:41)
[2022-11-10] MEDS: Cholecalciferol (Vitamin D3) 25 MCG Tab PO SCH (08:41)
[2022-11-10] MEDS: Budesonide 0.5 MG/2 ML Neb Susp NEB SCH ×2 (08:42→20:05)
[2022-11-10] MEDS: cefTRIAXone 1 GM Vial IVPUSH SCH (08:42)
[2022-11-10] MEDS: Metoprolol Succinate 25 MG Tab.ER PO SCH (08:46)
[2022-11-10] MEDS: LORazepam 0.5 MG Tab PO SCH ×3 (08:49→20:05)
[2022-11-10] MEDS: DOFETILIDE 250 MCG PO SCH ×2 (08:50→20:06)
[2022-11-10] MEDS: ROFLUMILAST 500 MCG PO SCH (08:51)
[2022-11-10] MEDS: Fluticasone Propionate Nasal Spray 9.9 ML BOTTLE NASBOTH SCH (08:52)
[2022-11-10] MEDS: REVEFENACIN 175 MCG/3 ML INH SCH (09:15)
[2022-11-10] MEDS: Morphine 2 MG/ML SYRINGE IVPUSH PRN ×4 (13:16→21:42)
[2022-11-10] MEDS: guaiFENesin 600 MG Tab.ER PO PRN (16:02)
[2022-11-10] MEDS ORDERED: LORazepam 0.5 MG Tab PO PRN (18:34)
[2022-11-10] MEDS: Hydroxychloroquine 200 MG Tab PO SCH (19:25)
[2022-11-10] MEDS: Rivaroxaban 10 MG Tab PO SCH (20:05)
[2022-11-10] MEDS: oxyCODONE 5 MG Tab PO PRN (21:14)
[2022-11-11] MEDS: Morphine 2 MG/ML SYRINGE IVPUSH PRN ×6 (01:04→14:59)
[2022-11-11] MEDS: Albuterol/Ipratropium 3.0-0.5 MG/3 ML Neb Soln NEB SCH (07:08)
[2022-11-11] MEDS: Arformoterol 15 MCG/2 ML Neb Soln INH SCH (07:11)
[2022-11-11] MEDS: Budesonide 0.5 MG/2 ML Neb Susp NEB SCH (08:40)
[2022-11-11] MEDS: REVEFENACIN 175 MCG/3 ML INH SCH (08:40)
[2022-11-11] MEDS: LORazepam 0.5 MG Tab PO SCH ×2 (09:46→13:17)
[2022-11-11] MEDS: Ferrous Sulfate 325 MG Tab PO SCH (09:48)
[2022-11-11] MEDS: Cholecalciferol (Vitamin D3) 25 MCG Tab PO SCH (09:48)
[2022-11-11] MEDS: guaiFENesin 600 MG Tab.ER PO PRN (09:54)
[2022-11-11] MEDS: ROFLUMILAST 500 MCG PO SCH (10:05)
[2022-11-11] MEDS: DOFETILIDE 250 MCG PO SCH (10:05)
[2022-11-11] MEDS: Metoprolol Succinate 25 MG Tab.ER PO SCH (10:05)
[2022-11-11] MEDS: Fluticasone Propionate Nasal Spray 9.9 ML BOTTLE NASBOTH SCH (10:06)
== END 2022-11-11 16:50 | disposition expired | DRG 189 ==
LOC: VM.ED 11:42 → VM.MS 15:53
PROVIDERS: ADMIT Nurse Practitioner Family; ATTEND Nurse Practitioner Family
DX: J96.00 Acute respiratory failure, unspecified whether with hypoxia or hypercapnia (principal); Z68.1 Body mass index [BMI] 19.9 or less, adult; E86.0 Dehydration; I50.22 Chronic systolic (congestive) heart failure; I48.91 Unspecified atrial fibrillation; I27.20 Pulmonary hypertension, unspecified; J43.9 Emphysema, unspecified; R53.1 Weakness; R41.0 Disorientation, unspecified; D72.829 Elevated white blood cell count, unspecified; R62.7 Adult failure to thrive; M06.9 Rheumatoid arthritis, unspecified; E78.5 Hyperlipidemia, unspecified; I71.40 Abdominal aortic aneurysm, without rupture, unspecified; Z66 Do not resuscitate; R19.7 Diarrhea, unspecified; I25.10 Atherosclerotic heart disease of native coronary artery without angina pectoris; G47.33 Obstructive sleep apnea (adult) (pediatric); E78.00 Pure hypercholesterolemia, unspecified; R77.8 Other specified abnormalities of plasma proteins; F17.210 Nicotine dependence, cigarettes, uncomplicated; Z20.822 Contact with and (suspected) exposure to COVID-19; M25.571 Pain in right ankle and joints of right foot; M25.561 Pain in right knee; M54.50 Low back pain, unspecified; G89.29 Other chronic pain; I48.0 Paroxysmal atrial fibrillation; F41.9 Anxiety disorder, unspecified; Z79.51 Long term (current) use of inhaled steroids; Z79.899 Other long term (current) drug therapy; Z99.81 Dependence on supplemental oxygen; Z79.01 Long term (current) use of anticoagulants; Z91.148 Patient's other noncompliance with medication regimen for other reason; Z90.710 Acquired absence of both cervix and uterus; Z98.890 Other specified postprocedural states; Z79.02 Long term (current) use of antithrombotics/antiplatelets; Z86.711 Personal history of pulmonary embolism
CPT/HCPCS: 0241U; 36415; 70450; 71045; 71046; 73562-RT; 73610-RT; 80053; 81001; 82550; 83605; 83615; 83735; 83880; 84145; 84484; 85025; 85027; 85610; 86140; 87040; 94640; 94760; 96361; 96374; 97110-GP; 97116-GP; 97162-GP; 97165-GO; 99284; 99285-25; A9270-GY; J0696; J2270; J2405; J3010; J3475; J3490; J7030; J7512; J7613-GY; J7620-GY